=== PATIENT | female | born 1980 | race Caucasian/White ===

== ENCOUNTER 2016-08-06 18:03 | Emergency (ER) | payer MEDICAID ==
[2016-08-06 18:19] VITALS: BP 137/99
--- NOTE | 2016-08-06 18:26 | ER Document Report ---
ED Medical Screen (RME) - General Chief Complaint: Facial Swelling Stated Complaint: FACIAL SWELLING Mode of Arrival: Ambulatory Information source: Patient Notes: 36-year-old female presents to ED complaining of left lower facial/jaw swelling and pain. Denies fever, difficulty breathing or swallowing. I have greeted and performed a rapid initial assessment of this patient. A comprehensive ED assessment and evaluation of the patient, analysis of test results and completion of the medical decision making process will be conducted by additional ED providers. TRAVEL OUTSIDE OF THE [place] IN LAST 30 DAYS: No - Related Data Allergies/Adverse Reactions: doxycycline Allergy (Verified 08/06/16 18:22) naproxen [From Naprosyn] Allergy (Verified 08/06/16 18:22) ibuprofen Adverse Reaction (Verified 08/06/16 18:22) Past Medical History - Social History Frequency of alcohol use: None Drug Abuse: None Family history: Reviewed & Not Pertinent - Past Medical History Cardiac Medical History: Reports: Hx Hypertension Pulmonary Medical History: Reports: Hx Bronchitis, Hx Pneumonia Denies: Hx Tuberculosis Renal/ Medical History: Reports: Hx Kidney Stones. Denies: Hx Peritoneal Dialysis Musculoskeltal Medical History: Reports Hx Musculoskeletal Trauma - fr arm Psychiatric Medical History: Reports: Hx Anxiety Denies: Hx Depression Traumatic Medical History: Reports: Hx Fractures - right arm Past Surgical History: Reports: Hx Section - x3, Hx Cholecystectomy, Hx Hysterectomy, Hx Inguinal Hernia, Hx Oral Surgery - teeth taken out - Immunizations Immunizations up to date: Yes Hx Diphtheria, Pertussis, Tetanus Vaccination: Yes Physical Exam - Vital signs Vitals: Temp Pulse Resp BP Pulse Ox 98.2 F 104 H 16 137/99 H 98 08/06/16 18:17 08/06/16 18:17 08/06/16 18:17 08/06/16 18:17 08/06/16 18:17 - General General appearance: Appears well, Alert In distress: None - Respiratory Respiratory status: No respiratory distress Course - Vital Signs Vital signs: Temp Pulse Resp BP Pulse Ox 98.2 F 104 H 16 137/99 H 98 08/06/16 18:17 08/06/16 18:17 08/06/16 18:17 08/06/16 18:17 08/06/16 18:17
[2016-08-06] MEDS ORDERED: SULFAMETHOXAZOLE/TRIMETHOPRIM 800-160 MG TABLET PO ONE (20:22)
[2016-08-06] MEDS ORDERED: CEPHALEXIN 500 MG CAPSULE PO ONE (20:22)
[2016-08-06] MEDS ORDERED: HYDROCODONE/ACETAMINOPHEN 5-325 MG 6 TAB/DSPK PO PRN (20:22)
--- NOTE | 2016-08-06 20:27 | ER Document Report ---
ED Skin Rash/Insect Bite/Abscs - General Chief Complaint: Facial Swelling Stated Complaint: FACIAL SWELLING Time seen by provider: 20:23 Mode of Arrival: Ambulatory Notes: Patient is a 36-year-old female that comes emergency department for chief complaint of an area on her face to the left of her mouth that has become slightly swollen, tender and she came to be evaluated for this. She denies throat pain, she has dentures, she denies fever, she denies neck pain. She denies history of MRSA or abscesses. TRAVEL OUTSIDE OF THE [place] IN LAST 30 DAYS: No - Related Data Allergies/Adverse Reactions: doxycycline Allergy (Verified 08/06/16 18:22) naproxen [From Naprosyn] Allergy (Verified 08/06/16 18:22) ibuprofen Adverse Reaction (Verified 08/06/16 18:22) Past Medical History - General Information source: Patient - Social History Smoking Status: Current Every Day Smoker Frequency of alcohol use: None Drug Abuse: None Lives with: Family Family History: CAD, CVA, DM, Hyperlipidemia, Hypertension, Malignancy, Other - GB disease Patient has suicidal ideation: No Patient has homicidal ideation: No - Past Medical History Cardiac Medical History: Reports: Hx Hypertension Pulmonary Medical History: Reports: Hx Bronchitis, Hx Pneumonia Denies: Hx Tuberculosis Renal/ Medical History: Reports: Hx Kidney Stones. Denies: Hx Peritoneal Dialysis Musculoskeltal Medical History: Reports Hx Musculoskeletal Trauma - fr arm Psychiatric Medical History: Reports: Hx Anxiety Denies: Hx Depression Traumatic Medical History: Reports: Hx Fractures - right arm Past Surgical History: Reports: Hx Section - x3, Hx Cholecystectomy, Hx Hysterectomy, Hx Inguinal Hernia, Hx Oral Surgery - teeth taken out - Immunizations Immunizations up to date: Yes Hx Diphtheria, Pertussis, Tetanus Vaccination: Yes Review of Systems - Review of Systems Constitutional: No symptoms reported EENT: See HPI Cardiovascular: No symptoms reported Respiratory: No symptoms reported Gastrointestinal: No symptoms reported Genitourinary: No symptoms reported Female Genitourinary: No symptoms reported Musculoskeletal: No symptoms reported Skin: See HPI Hematologic/Lymphatic: No symptoms reported Neurological/Psychological: No symptoms reported Physical Exam - Vital signs Vitals: Temp Pulse Resp BP Pulse Ox 98.2 F 104 H 16 137/99 H 98 08/06/16 18:17 08/06/16 18:17 08/06/16 18:17 08/06/16 18:17 08/06/16 18:17 Interpretation: Normal - General General appearance: Appears well, Alert In distress: None - HEENT Head: Normocephalic, Atraumatic Eyes: Normal Conjunctiva: Normal Extraocular movements intact: Yes Eyelashes: Normal Pupils: PERRL Sinus: Normal Nasal: Normal Mouth/Lips: Normal Mucous membranes: Normal Pharynx: Normal Neck: Normal - Respiratory Respiratory status: No respiratory distress Chest status: Nontender Breath sounds: Normal. No: Decreased air movement, Nonproductive cough, Wheezing - Cardiovascular Rhythm: Regular - No tachycardia on my exam. No: Tachycardia Heart sounds: Normal auscultation, S1 appreciated, S2 appreciated Murmur: No - Abdominal Inspection: Normal Distension: No distension Bowel sounds: Normal Tenderness: Nontender. No: Tender, Guarding - Back Back: Normal, Nontender. 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 Sensory: Normal - Psychological Associated symptoms: Normal affect, Normal mood - Skin Skin Temperature: Warm Skin Moisture: Dry Skin Color: Normal Skin irregularity: other - small area of skin firmness underneath the superficial skin over the left lower face (adjacent to the lips) with mild tenderness to the area, no significant erythema, no noted induration or fluctuance Course - Re-evaluation Re-evalutation: There is a small area of skin firmness underneath the superficial skin over the face with mild tenderness to the area, no significant erythema, no noted induration or fluctuance, no drainable abscess. Appears to be an early skin infection. Dental examination is unremarkable with dentures. No lymphadenopathy. Patient is not tachycardic on my evaluation. - Vital Signs Vital signs: Temp Pulse Resp BP Pulse Ox 98.2 F 104 H 16 137/99 H 98 08/06/16 18:17 08/06/16 18:17 08/06/16 18:17 08/06/16 18:17 08/06/16 18:17 Discharge - Discharge Clinical Impression: Skin infection Condition: Stable Disposition: HOME, SELF-CARE Additional Instructions: There is a small area of localized skin infection on your face. Apply warm compress to the area, take the antibiotics. This may resolve, this also may increase swelling into a head (abscess) that will need to be drained. Please return for any formation of an abscess, spreading redness around the area , fever, or any other concerning symptoms. Prescriptions: Cephalexin Monohydrate [Keflex 500 mg Capsule] 500 mg PO QID #28 capsule Sulfamethoxazole/Trimethoprim [Bactrim Ds Tablet] 1 each PO BID #14 tablet Forms: Return to Work Referrals: MIRTHA ARTEAGA MD, [Primary Care Provider] - Follow up as needed
== END 2016-08-06 20:34 | disposition home or self-care (01) ==
LOC: EEVIPCON 18:03 → ER 18:03
DX: L08.9 Local infection of the skin and subcutaneous tissue, unspecified (principal); I10 Essential (primary) hypertension; F17.200 Nicotine dependence, unspecified, uncomplicated; Z88.1 Allergy status to other antibiotic agents; Z88.8 Allergy status to other drugs, medicaments and biological substances
CPT/HCPCS: 99283; J3490

== ENCOUNTER 2016-11-16 16:21 | Emergency (ER) | payer MEDICAID ==
[2016-11-16 16:29] VITALS: BP 126/80
--- NOTE | 2016-11-16 16:39 | ER Document Report ---
HPI - HPI Patient complains to provider of: itchy rash Onset: Other - 2 months Onset/Duration: Persistent Pain Level: 2 Context: 36-year-old female complaining of isolated pruritic lesions/rash on her arms waist. 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 No history scabies. Associated Symptoms: None Exacerbated by: Denies Relieved by: Denies Similar symptoms previously: No Recently seen / treated by doctor: No - ROS ROS below otherwise negative: Yes Systems Reviewed and Negative: Yes All other systems reviewed and negative - REPRODUCTIVE Reproductive: DENIES: : - DERM Skin Color: Normal Past Medical History - General Information source: Patient - Social History Smoking Status: Unknown if Ever Smoked Frequency of alcohol use: None Drug Abuse: None Lives with: Family Family History: CAD, CVA, DM, Hyperlipidemia, Hypertension, Malignancy, Other - GB disease Patient has suicidal ideation: No Patient has homicidal ideation: No - Past Medical History Cardiac Medical History: Reports: Hx Hypertension Pulmonary Medical History: Reports: Hx Bronchitis, Hx Pneumonia Denies: Hx Tuberculosis Renal/ Medical History: Reports: Hx Kidney Stones. Denies: Hx Peritoneal Dialysis Musculoskeltal Medical History: Reports Hx Musculoskeletal Trauma - fr arm Psychiatric Medical History: Reports: Hx Anxiety Denies: Hx Depression Traumatic Medical History: Reports: Hx Fractures - right arm Past Surgical History: Reports: Hx Section - x3, Hx Cholecystectomy, Hx Hysterectomy, Hx Inguinal Hernia, Hx Oral Surgery - teeth taken out - Immunizations Immunizations up to date: Yes Hx Diphtheria, Pertussis, Tetanus Vaccination: Yes Vertical Provider Document - CONSTITUTIONAL Agree With Documented VS: Yes - INFECTION CONTROL TRAVEL OUTSIDE OF THE [place] IN LAST 30 DAYS: No - HEENT HEENT: Normocephalic - NECK Neck: Supple - RESPIRATORY Respiratory: Breath Sounds Normal, No Respiratory Distress O2 Sat by Pulse Oximetry: 98 - CARDIOVASCULAR Cardiovascular: Regular Rate, Regular Rhythm - GI/ABDOMEN Gastrointestinal: Abdomen Soft, Abdomen Non-Tender, No Organomegaly - BACK Back: Normal Inspection - MUSCULOSKELETAL/EXTREMETIES Musculoskeletal/Extremeties: TRELL GOYAL - NEURO Level of Consciousness: Awake, Alert, Appropriate - DERM Integumentary: Rash - inflamed isolated crusted lesions scattered on both arms, anterior trunk Course - Re-evaluation Re-evalutation: 11/16/16 16:53 Patient started Levaquin yesterday for a upper respiratory infection by her primary care doctor prescription - Vital Signs Vital signs: Temp Pulse Resp BP Pulse Ox 98.2 F 98 16 126/80 H 98 11/16/16 16:27 11/16/16 16:27 11/16/16 16:27 11/16/16 16:27 11/16/16 16:27 Discharge - Discharge Clinical Impression: Impetigo, Scabies Condition: Good Disposition: HOME, SELF-CARE Instructions: Impetigo ([facility]), Bactroban Ointment ([facility]), Anti-Mite Skin Creams Additional Instructions: see instrumental teacher if persists to er if worse Please complete the patient satisfaction survey if you get one, and return it.. If you do not receive a survey, then you can go to the [facility] website, [email or web address] and place your comments about your very good care. Thank you very much. It was a pleasure being your medical provider today. Prescriptions: Mupirocin [Bactroban 2% Ointment 22 gm] 1 applic TP TID #1 tube Permethrin [Elimite] 60 gm TP ONCE PRN #60 cream..g. PRN Reason: Forms: Return to Work Referrals: RAMIRO SHANKAR, [ACTIVE STAFF] - Follow up as needed
== END 2016-11-16 17:06 | disposition home or self-care (01) ==
LOC: ER 16:21
DX: L01.00 Impetigo, unspecified (principal); B86 Scabies; R21 Rash and other nonspecific skin eruption
CPT/HCPCS: 99283

== ENCOUNTER 2016-12-09 19:30 | Emergency (ER) | payer MEDICAID ==
[2016-12-09] MEDS ORDERED: LIDOCAINE 1% INJ-PF (10 MG/ML) 30 ML SDV INJ ONE (19:56)
[2016-12-09] MEDS ORDERED: DEXAMETHASONE SOD PHOS INJ 10 MG/1 ML VIAL IM ONE (19:56)
[2016-12-09] MEDS ORDERED: CEFTRIAXONE INJ 1000 MG VIAL IM ONE (19:56)
--- NOTE | 2016-12-09 20:01 | ER Document Report ---
ED Respiratory Problem - General Chief Complaint: Cold Symptoms Stated Complaint: COUGH,FEVER Time Seen by Provider: 12/09/16 19:56 Mode of Arrival: Ambulatory Information source: Patient TRAVEL OUTSIDE OF THE [place] IN LAST 30 DAYS: No - HPI Patient complains to provider of: Cough Onset: Other - This 36-year-old female presented to the emergency room today stating she has had a cough with productive sputum yellow-green in nature for 3 days. - Related Data Allergies/Adverse Reactions: doxycycline Allergy (Verified 11/16/16 16:27) naproxen [From Naprosyn] Allergy (Verified 11/16/16 16:27) ibuprofen Adverse Reaction (Verified 11/16/16 16:27) Past Medical History - General Information source: Patient - Social History Smoking Status: Current Every Day Smoker Cigarette use (# per day): Yes Chew tobacco use (# tins/day): No Smoking Education Provided: No Family History: CAD, CVA, DM, Hyperlipidemia, Hypertension, Malignancy, Other - GB disease - Past Medical History Cardiac Medical History: Reports: Hx Hypertension Pulmonary Medical History: Reports: Hx Bronchitis, Hx Pneumonia Denies: Hx Tuberculosis Renal/ Medical History: Reports: Hx Kidney Stones. Denies: Hx Peritoneal Dialysis GI Medical History: Reports: Hx Gastroesophageal Reflux Disease Musculoskeltal Medical History: Reports Hx Musculoskeletal Trauma - fr arm Psychiatric Medical History: Reports: Hx Anxiety Denies: Hx Depression Traumatic Medical History: Reports: Hx Fractures - right arm Past Surgical History: Reports: Hx Section - x3, Hx Cholecystectomy, Hx Hysterectomy, Hx Inguinal Hernia, Hx Oral Surgery - teeth taken out - Immunizations Immunizations up to date: Yes Hx Diphtheria, Pertussis, Tetanus Vaccination: Yes Review of Systems - Review of Systems Constitutional: No symptoms reported EENT: No symptoms reported Cardiovascular: No symptoms reported Respiratory: No symptoms reported Gastrointestinal: No symptoms reported Genitourinary: No symptoms reported Female Genitourinary: No symptoms reported Musculoskeletal: No symptoms reported Skin: No symptoms reported Hematologic/Lymphatic: No symptoms reported Neurological/Psychological: No symptoms reported Physical Exam - Vital signs Vitals: Temp Pulse Resp BP Pulse Ox 99.7 F 115 H 18 141/91 H 94 12/09/16 19:37 12/09/16 19:37 12/09/16 19:37 12/09/16 19:37 12/09/16 19:37 Interpretation: Normal - General General appearance: Appears well, Alert - HEENT Head: Normocephalic, Atraumatic Eyes: Normal Pupils: PERRL - Respiratory Respiratory status: No respiratory distress Chest status: Nontender Breath sounds: Productive cough - Green discharge. Chest palpation: Normal - Cardiovascular Rhythm: Regular Heart sounds: Normal auscultation Murmur: No - Abdominal Inspection: Normal Distension: No distension Bowel sounds: Normal Tenderness: Nontender Organomegaly: No organomegaly - Back Back: Normal, Nontender - Extremities General upper extremity: Normal inspection, Nontender, Normal color, Normal ROM , Normal temperature General lower extremity: Normal inspection, Nontender, Normal color, Normal ROM , Normal temperature, Normal weight bearing. No: Adair's sign - Neurological Neuro grossly intact: Yes Cognition: Normal Orientation: AAOx4 [place] Coma Scale Eye Opening: Spontaneous [place] Coma Scale Verbal: Oriented [place] Coma Scale Motor: Obeys Commands [place] Coma Scale Total: 15 Speech: Normal Motor strength normal: LUE, RUE, LLE, RLE Sensory: Normal - Psychological Associated symptoms: Normal affect, Normal mood - Skin Skin Temperature: Warm Skin Moisture: Dry Skin Color: Normal Course - Vital Signs Vital signs: Temp Pulse Resp BP Pulse Ox 99.7 F 115 H 18 141/91 H 94 12/09/16 19:37 12/09/16 19:37 12/09/16 19:37 12/09/16 19:37 12/09/16 19:37 Discharge - Discharge Clinical Impression: Bronchitis Condition: Good Disposition: HOME, SELF-CARE Additional Instructions: Bronchitis You have acute bronchitis. This disease is an infection or inflammation of the air passageways in your lungs. Symptoms usually include cough, low grade fever, shortness of breath, and wheezing. The cough usually persists for a couple of weeks. Most cases of bronchitis get better without antibiotics. We prescribe antibiotics when we believe bacteria are damaging your airways, or if there's high risk the bronchitis will worsen into pneumonia. Increase your fluid intake. A cool mist humidifier may make your lungs more comfortable. An expectorant (cough medicine that loosens phlegm) can help. If you smoke, STOP!!! Recovery from bronchitis can be somewhat slow, but you should see improvement within a day or two. Repeated episodes of bronchitis may result in lung damage -- for example, chronic bronchitis, recurrent pneumonias, or emphysema. Call the doctor if you develop increasing fever, shortness of breath, chest pain, bloody sputum, or otherwise worsen. If you have not improved at all after several days, contact the physician. Follow-up with private doctor in 1 to 2 days for final radiology readings please return to the emergency room for any change worsening condition. Follow up with private M.D. for all other routine health care needs. Prescriptions: Albuterol Sulfate [Proair HFA Inhalation Aerosol 8.5 gm MDI] 2 puff IH Q4H PRN # 1 mdi PRN Reason: Amox Tr/Potassium Clavulanate [Augmentin 875-125 Tablet] 1 tab PO BID 10 Days
[2016-12-09 20:44] VITALS: BP 136/86
== END 2016-12-09 20:42 | disposition home or self-care (01) ==
LOC: ER 19:30
DX: J40 Bronchitis, not specified as acute or chronic (principal); R50.9 Fever, unspecified; F17.210 Nicotine dependence, cigarettes, uncomplicated; I10 Essential (primary) hypertension; K21.9 Gastro-esophageal reflux disease without esophagitis; Z87.442 Personal history of urinary calculi; Z88.6 Allergy status to analgesic agent; Z90.49 Acquired absence of other specified parts of digestive tract; Z90.710 Acquired absence of both cervix and uterus
CPT/HCPCS: 99283; 96372; J3490; J0696; J1100

== ENCOUNTER 2016-12-12 13:53 | Inpatient (IN) | payer MEDICAID ==
[2016-12-12] MEDS ORDERED: LEVOFLOXACIN 750 MG/D5W RTU 150 ML IV ONE (14:30)
[2016-12-12 14:33] LABS: HEMATOCRIT 39.2 % (36.0-47.0); HEMOGLOBIN 12.8 g/dL (12.0-15.5); HGB HCT DIFFERENCE -0.8; MEAN CORPUSCULAR HEMOGLOBIN 27.8 pg (27.0-33.4); MEAN CORPUSCULAR HGB CONC 32.6 g/dL (32.0-36.0); MEAN CORPUSCULAR VOLUME 85 fl (80-97); RED CELL DISTRIBUTION WIDTH 14.4 % (11.5-14.0); WHITE BLOOD COUNT 21.3 10^3/uL (4.0-10.5)
[2016-12-12 14:46] LABS: ALANINE AMINOTRANSFERASE 29 U/L (9-52); ALBUMIN 4.1 g/dL (3.5-5.0); ALKALINE PHOSPHATASE 97 U/L (38-126); ANION GAP 13 (5-19); ASPARTATE AMINO TRANSFERASE 30 U/L (14-36); BILIRUBIN,DIRECT 0.4 mg/dL (0.0-0.4); BILIRUBIN,TOTAL 0.6 mg/dL (0.2-1.3); BLOOD UREA NITROGEN 11 mg/dL (7-20); CALCIUM 9.3 mg/dL (8.4-10.2); CARBON DIOXIDE 24 mmol/L (22-30); CHLORIDE 103 mmol/L (98-107); CREATININE RESULT 0.77 mg/dL (0.52-1.25); GLUCOSE 143 mg/dL (75-110); POTASSIUM 4.3 mmol/L (3.6-5.0); SODIUM 140.1 mmol/L (137-145); TOTAL PROTEIN 7.4 g/dL (6.3-8.2)
--- NOTE | 2016-12-12 15:14 | ER Document Report ---
ED General - General Chief Complaint: Respiratory Distress Stated Complaint: RESPIRATORY DISTRESS Time Seen by Provider: 12/12/16 14:16 Mode of Arrival: Medic Information source: Patient Notes: 36-year-old female presents with complaints of respiratory distress.Pt noted to by satting 85% on Ra, states she has had complaints since for 4 days now, is a smoker, was diagnosed with bronchitis has taken 7 breathing treatments since this morning TRAVEL OUTSIDE OF THE [place] IN LAST 30 DAYS: No - HPI Onset: Other Onset/Duration: Persistent Quality of pain: No pain Severity: Moderate Pain Level: Denies Associated symptoms: Shortness of breath Exacerbated by: Walking, Coughing Relieved by: Denies Similar symptoms previously: Yes Recently seen / treated by doctor: Yes - Related Data Allergies/Adverse Reactions: doxycycline Allergy (Verified 12/09/16 20:41) naproxen [From Naprosyn] Allergy (Verified 12/09/16 20:41) ibuprofen Adverse Reaction (Verified 12/09/16 20:41) Past Medical History - Social History Smoking Status: Current Every Day Smoker Cigarette use (# per day): Yes Chew tobacco use (# tins/day): No Smoking Education Provided: Yes - Patient counselled regarding cessation for 4 minutes Frequency of alcohol use: None Drug Abuse: None Family History: CAD, CVA, DM, Hyperlipidemia, Hypertension, Malignancy, Other - GB disease - Past Medical History Cardiac Medical History: Reports: Hx Hypertension Pulmonary Medical History: Reports: Hx Bronchitis, Hx Pneumonia Denies: Hx Tuberculosis Renal/ Medical History: Reports: Hx Kidney Stones. Denies: Hx Peritoneal Dialysis GI Medical History: Reports: Hx Gastroesophageal Reflux Disease Musculoskeltal Medical History: Reports Hx Musculoskeletal Trauma - fr arm Psychiatric Medical History: Reports: Hx Anxiety Denies: Hx Depression Traumatic Medical History: Reports: Hx Fractures - right arm Past Surgical History: Reports: Hx Section - x3, Hx Cholecystectomy, Hx Hysterectomy, Hx Inguinal Hernia, Hx Oral Surgery - teeth taken out - Immunizations Immunizations up to date: Yes Hx Diphtheria, Pertussis, Tetanus Vaccination: Yes Review of Systems - Review of Systems Notes: REVIEW OF SYSTEMS: CONSTITUTIONAL : Denies fever, chills, or sweats. Denies recent illness. EENT: Denies eye, ear, throat, or mouth pain or symptoms. Denies nasal or sinus congestion or discharge. Denies throat, tongue, or mouth swelling or difficulty swallowing. CARDIOVASCULAR: Denies chest pain. Denies palpitations or racing or irregular heart beat. Denies ankle edema. RESPIRATORY: Shortness breath difficulty breathing GASTROINTESTINAL: Denies abdominal pain or distention. Denies nausea, vomiting , or diarrhea. Denies blood in vomitus, stools, or per rectum. Denies black, tarry stools. Denies constipation. GENITOURINARY: Denies difficulty urinating, painful urination, burning, frequency, blood in urine, or discharge. FEMALE GENITOURINARY: Denies vaginal bleeding, heavy or abnormal periods, irregular periods. Denies vaginal discharge or odor. MUSCULOSKELETAL: Denies back or neck pain or stiffness. Denies joint pain or swelling. SKIN: Denies rash, lesions or sores. HEMATOLOGIC : Denies easy bruising or bleeding. LYMPHATIC: Denies swollen, enlarged glands. NEUROLOGICAL: Denies confusion or altered mental status. Denies passing out or loss of consciousness. Denies dizziness or lightheadedness. Denies headache. Denies weakness or paralysis or loss of use of either side. Denies problems with gait or speech. Denies sensory loss, numbness, or tingling. Denies seizures. PSYCHIATRIC: Denies anxiety or stress. Denies depression, suicidal ideation, or homicidal ideation. ALL OTHER SYSTEMS REVIEWED AND NEGATIVE. Dictation was performed using [employer] voice recognition software PHYSICAL EXAMINATION: GENERAL: Well-appearing, well-nourished and in moderate respiratory distress HEAD: Atraumatic, normocephalic. EYES: Pupils equal round and reactive to light, extraocular movements intact, conjunctiva are normal. ENT: Nares patent, oropharynx clear without exudates. Moist mucous membranes. NECK: Normal range of motion, supple without lymphadenopathy LUNGS: Coarse breath sounds right middle upper lobe, intercostal supraclavicular retractions HEART: Regular rate and rhythm without murmurs ABDOMEN: Soft, nontender, nondistended abdomen. No guarding, no rebound. No masses appreciated. Female : deferred Musculoskeletal: Normal range of motion, no pitting or edema. No cyanosis. NEUROLOGICAL: Cranial nerves grossly intact. Normal speech, normal gait. Normal sensory, motor exams PSYCH: Normal mood, normal affect. SKIN: Warm, Dry, normal turgor, no rashes or lesions noted. Physical Exam - Vital signs Vitals: Resp Pulse Ox 40 H 88 L 05/30/17 14:17 12/12/16 14:17 Course - Re-evaluation Re-evalutation: 12/12/16 15:14 Patient noted to have a white count 21,000, she is hypoxic respiratory distress. Multiple breathing treatments have been given. Patient placed on nonrebreather's O2 sats are not improving. Lactic venous blood gas are pending and will require admission for significant respiratory distress - Vital Signs Vital signs: Temp Pulse Resp BP Pulse Ox 21 H 120/79 95 12/12/16 15:00 12/12/16 14:48 12/12/16 15:00 - Laboratory Result Diagrams: 12/12/16 14:15 12/12/16 14:15 Laboratory results interpreted by me: 12/12/16 12/12/16 14:15 14:15 WBC 21.3 H RDW 14.4 H Seg Neuts % (Manual) 88 H Lymphocytes % (Manual) 9 L Monocytes % (Manual) 2 L Abs Neuts (Manual) 18.7 H Glucose 143 H Critical Care Note - Critical Care Note Total time excluding time spent on procedures (mins): 34 Comments: 34 critical care Discharge - Discharge Clinical Impression: Hypoxemia, Respiratory distress Sepsis Qualifiers: Sepsis type: sepsis due to unspecified organism Qualified Code(s): A41.9 - Sepsis, unspecified organism Pneumonia Qualifiers: Pneumonia type: due to unspecified organism Laterality: right Lung location: middle lobe of lung Qualified Code(s): J18.1 - Lobar pneumonia, unspecified organism Sepsis Qualifiers: Sepsis type: sepsis due to unspecified organism Qualified Code(s): A41.9 - Sepsis, unspecified organism Sepsis Qualifiers: Sepsis type: sepsis due to unspecified organism Qualified Code(s): A41.9 - Sepsis, unspecified organism Condition: Fair Disposition: ADMITTED INPATIENT Admitting Provider: Hospitalist Unit Admitted: IMCU Referrals: MIRTHA ARTEAGA MD [Primary Care Provider] - Follow up as needed
--- NOTE | 2016-12-12 15:23 | RADIOLOGY REPORT (SQ) ---
EXAM DESCRIPTION: CHEST SINGLE VIEW COMPLETED DATE/TIME: 12/12/2016 2:39 pm REASON FOR STUDY: sob COMPARISON: 05/26/2016 EXAM PARAMETERS: NUMBER OF VIEWS: One view. TECHNIQUE: Single frontal radiographic view of the chest acquired. RADIATION DOSE: NA LIMITATIONS: None. FINDINGS: LUNGS AND PLEURA: The perihilar markings are prominent. MEDIASTINUM AND HILAR STRUCTURES: No masses. Contour normal. HEART AND VASCULAR STRUCTURES: The heart size is normal. However, pulmonary vascular markings are pr ominent. BONES: No acute findings. HARDWARE: None in the chest. OTHER: No other significant finding. IMPRESSION: Pulmonary vascular congestion with no localized pulmonary infiltrates. TECHNICAL DOCUMENTATION: JOB ID: [id number]
[2016-12-12 15:24] LABS: VENOUS BLOOD BASE EXCESS -0.3 mmol/L; VENOUS BLOOD HCO3 24.9 mmol/L (20-32); VENOUS BLOOD PCO2 42.7 mmHg (35-63); VENOUS BLOOD PH 7.38 (7.30-7.42)
[2016-12-12 15:31] LABS: ANISOCYTOSIS SLIGHT; BASOPHILS % (MANUAL) 0 % (0-2); EOSINOPHILS % (MANUAL) 1 % (0-6); LYMPHOCYTES % (MANUAL) 9 % (13-45); TOTAL CELLS COUNTED 100; TOXIC GRANULATION SLIGHT
[2016-12-12] MEDS ORDERED: NORMAL SALINE 1000 ML 1,000 ML IV ONE (15:39)
[2016-12-12 15:57] LABS: CREATINE KINASE MB 0.82 ng/mL (<4.55)
[2016-12-12 15:58] LABS: TROPONIN I < 0.012 ng/mL
[2016-12-12] MEDS ORDERED: ACETAMINOPHEN 325 MG TABLET PO PRN (16:28)
[2016-12-12] MEDS ORDERED: HYDRALAZINE HCL INJ/PF 20 MG/1 ML SDV IV PRN (16:36)
[2016-12-12 16:37] LABS: APPEARANCE,URINE CLEAR; BILIRUBIN,URINE NEGATIVE (NEGATIVE); GLUCOSE, URINE NEGATIVE (NEGATIVE); KETONES,URINE NEGATIVE (NEGATIVE); LEUKOCYTE ESTERASE,URINE NEGATIVE (NEGATIVE); NITRITE,URINE NEGATIVE (NEGATIVE); PROTEIN,URINE NEGATIVE (NEGATIVE); URINE SPECIFIC GRAVITY 1.009; UROBILINOGEN,URINE NEGATIVE mg/dL (<2.0)
--- NOTE | 2016-12-12 16:41 | PDOC H&P ---
History of Present Illness Admission Date/PCP: 12/12/16 16:19 MIRTHA ARTEAGA MD Patient complains of: Cough History of Present Illness: SARA GRAF is a 36 year old female with several day history of cough and fevers. Patient was treated 2 days ago for acute bronchitis with oral Augmentin. She presents to the emergency department today with worsening symptoms and is found to be hypoxic with O2 sat of 82% on room air. She feels generally ill. She has had poor appetite. She has had fevers and chills. She is a smoker. Medications have not been verified. Past Medical History Cardiac Medical History: Reports: Hypertension Pulmonary Medical History: Reports: Bronchitis, Pneumonia Denies: Tuberculosis GI Medical History: Reports: Gastroesophageal Reflux Disease Psychiatric Medical History: Denies: Depression Past Surgical History Past Surgical History: Reports: Section - x3, Cholecystectomy, Herniorrhaphy, Hysterectomy Social History Information Source: Patient Lives with: Family Smoking Status: Current Every Day Smoker Frequency of Alcohol Use: Occasional Hx Recreational Drug Use: No Hx Prescription Drug Abuse: No - Advance Directive Resuscitation Status: Full Code Family History Family History: CAD, CVA, DM, Hyperlipidemia, Hypertension, Malignancy, Other - GB disease Parental Family History Reviewed: Yes Children Family History Reviewed: Yes Sibling(s) Family History Reviewed.: Yes Medication/Allergy Allergies/Adverse Reactions: doxycycline Allergy (Verified 12/09/16 20:41) naproxen [From Naprosyn] Allergy (Verified 12/09/16 20:41) ibuprofen Adverse Reaction (Verified 12/09/16 20:41) Review of Systems Constitutional: PRESENT: chills, fatigue. ABSENT: fever(s), headache(s), weight gain, weight loss Eyes: ABSENT: visual disturbances Ears: ABSENT: hearing changes Cardiovascular: ABSENT: chest pain, dyspnea on exertion, edema, orthropnea, palpitations Respiratory: PRESENT: cough, dyspnea, sputum. ABSENT: hemoptysis Gastrointestinal: ABSENT: abdominal pain, constipation, diarrhea, hematemesis, hematochezia, nausea, vomiting Genitourinary: ABSENT: dysuria, hematuria Musculoskeletal: ABSENT: joint swelling Integumentary: ABSENT: rash, wounds Neurological: ABSENT: abnormal gait, abnormal speech, confusion, dizziness, focal weakness, syncope Psychiatric: ABSENT: anxiety, depression, homidical ideation, suicidal ideation Endocrine: ABSENT: cold intolerance, heat intolerance, polydipsia, polyuria Hematologic/Lymphatic: ABSENT: easy bleeding, easy bruising Physical Exam Vital Signs: Temp Pulse Resp BP Pulse Ox 26 H 120/79 96 12/12/16 16:22 12/12/16 14:48 12/12/16 16:00 PHYSICAL EXAM: GENERAL: Slightly ill-appearing, alert HEENT: Normocephalic, no scleral icterus, conjunctiva clear, EOEM intact, PERRLA , moist mucous membranes NECK: trachea midline, no thyromegally RESPIRATORY: Bilateral wheezes and rhonchi CARDIAC: Regular rate and rhythm, no murmur/osmani/rub ABDOMEN: Soft, no distension, no tenderness, no guarding, normal bowel sounds, negative Barber sign RECTAL: deferred : deferred EXTREMITIES: No edema, cyanosis, clubbing MUSCULOSKELETAL: No joint swelling or deformity VASCULAR: normal peripheral pulses NEUROLOGIC: Alert, oriented to person/place/time, normal speech, cranial nerves grossly intact, 5/5 strength in all extremities, tactile sensation intact in all extremities SKIN: No rash, no wounds, no worrisome skin lesions PSYCHIATRIC: Normal mood, normal affect Results Laboratory Results: Labs- All tests 24 hr 12/12/16 12/12/16 12/12/16 14:15 14:15 14:15 WBC 21.3 H RBC 4.60 Hgb 12.8 Hct 39.2 MCV 85 MCH 27.8 MCHC 32.6 RDW 14.4 H Plt Count 241 Total Counted 100 Seg Neutrophils % Not Reportable Seg Neuts % (Manual) 88 H Lymphocytes % Not Reportable Lymphocytes % (Manual) 9 L Monocytes % Not Reportable Monocytes % (Manual) 2 L Eosinophils % Not Reportable Eosinophils % (Manual) 1 Basophils % Not Reportable Basophils % (Manual) 0 Absolute Neutrophils Not Reportable Abs Neuts (Manual) 18.7 H Absolute Lymphocytes Not Reportable Abs Lymphs (Manual) 1.9 Absolute Monocytes Not Reportable Abs Monocytes (Manual) 0.4 Absolute Eosinophils Not Reportable Absolute Eos (Manual) 0.2 Absolute Basophils Not Reportable Abs Basophils (Manual) 0.0 Toxic Granulation SLIGHT Platelet Comment ADEQUATE Anisocytosis SLIGHT VBG pH VBG pCO2 VBG HCO3 VBG Base Excess Sodium 140.1 Potassium 4.3 Chloride 103 Carbon Dioxide 24 Anion Gap 13 BUN 11 Creatinine 0.77 Est GFR ( Amer) > 60 Est GFR (Non-Af Amer) > 60 Glucose 143 H Lactic Acid Calcium 9.3 Total Bilirubin 0.6 Direct Bilirubin 0.4 Indirect Bilirubin Not Reportable Neonat Total Bilirubin Not Reportable AST 30 ALT 29 Alkaline Phosphatase 97 Creatine Kinase 84 CK-MB (CK-2) Troponin I NT-Pro-B Natriuret Pep Total Protein 7.4 Albumin 4.1 12/12/16 12/12/16 12/12/16 14:15 15:06 15:06 WBC RBC Hgb Hct MCV MCH MCHC RDW Plt Count Total Counted Seg Neutrophils % Seg Neuts % (Manual) Lymphocytes % Lymphocytes % (Manual) Monocytes % Monocytes % (Manual) Eosinophils % Eosinophils % (Manual) Basophils % Basophils % (Manual) Absolute Neutrophils Abs Neuts (Manual) Absolute Lymphocytes Abs Lymphs (Manual) Absolute Monocytes Abs Monocytes (Manual) Absolute Eosinophils Absolute Eos (Manual) Absolute Basophils Abs Basophils (Manual) Toxic Granulation Platelet Comment Anisocytosis VBG pH 7.38 VBG pCO2 42.7 VBG HCO3 24.9 VBG Base Excess -0.3 Sodium Potassium Chloride Carbon Dioxide Anion Gap BUN Creatinine Est GFR ( Amer) Est GFR (Non-Af Amer) Glucose Lactic Acid 1.5 Calcium Total Bilirubin Direct Bilirubin Indirect Bilirubin Neonat Total Bilirubin AST ALT Alkaline Phosphatase Creatine Kinase CK-MB (CK-2) 0.82 Troponin I < 0.012 NT-Pro-B Natriuret Pep 56 Total Protein Albumin Impressions: Chest X-Ray 12/12/16 14:17 Radiologist IMPRESSION: Pulmonary vascular congestion with no localized airspace disease (per my interpretation patient has left lower lung field pneumonia) Assessment & Plan - Diagnosis (1) Acute hypoxemic respiratory failure Is this a current diagnosis for this admission?: YesPlan: Continue oxygen supplementation. (2) Sepsis Qualifiers: Sepsis type: sepsis due to unspecified organism Qualified Code(s): A41.9 - Sepsis, unspecified organism Is this a current diagnosis for this admission?: YesPlan: Secondary to pneumonia. (3) Pneumonia Qualifiers: Pneumonia type: due to unspecified organism Laterality: right Lung location: middle lobe of lung Qualified Code(s): J18.1 - Lobar pneumonia, unspecified organism Is this a current diagnosis for this admission?: YesPlan: Likely bacterial. Failed outpatient Augmentin. Continue IV Levaquin initiated in the emergency department. Check blood cultures and sputum culture. (4) Hypertension Is this a current diagnosis for this admission?: YesPlan: Verify home medications and resume. As needed IV hydralazine. (5) Tobacco abuse Is this a current diagnosis for this admission?: Yes - Time Time Spent: Greater than 70 Minutes Anticipated discharge: Home Within: within 72 hours
[2016-12-12] MEDS: DEXTROSE 5%-1/2 NORMAL SALINE 1,000 ML IV PRN (19:01)
[2016-12-12] MEDS: GUAIFENESIN 600 MG TABLET.SA PO SCH (21:46)
[2016-12-12] MEDS: OXYCODONE HCL IR 5 MG TABLET PO PRN (21:46)
[2016-12-12] MEDS: ALBUTEROL SULFATE 0.083% NEB 2.5 MG/3 ML AMPUL NEB PRN (22:02)
--- NOTE | 2016-12-13 00:19 | EKG REPORT ---
SEVERITY:- ABNORMAL ECG - SINUS RHYTHM PROBABLE LEFT VENTRICULAR HYPERTROPHY : Confirmed by: Maira Zarate 13-Dec-2016 00:18:45
--- NOTE | 2016-12-13 00:20 | EKG REPORT ---
SEVERITY:- DEFECTIVE ECG - RIGHT AND LEFT ARM LEADS REVERSED, PLEASE REPEAT ECG : Confirmed by: Maira Zarate 13-Dec-2016 00:20:30
[2016-12-13] MEDS: ALBUTEROL SULFATE 0.083% NEB 2.5 MG/3 ML AMPUL NEB PRN ×3 (03:46→18:07)
[2016-12-13 04:54] LABS: HEMATOCRIT 36.7 % (36.0-47.0); HEMOGLOBIN 12.1 g/dL (12.0-15.5); HGB HCT DIFFERENCE -0.4; MEAN CORPUSCULAR VOLUME 85 fl (80-97); RED BLOOD COUNT 4.32 10^6/uL (3.72-5.28); RED CELL DISTRIBUTION WIDTH 14.5 % (11.5-14.0)
[2016-12-13 05:07] LABS: ANION GAP 11 (5-19); BLOOD UREA NITROGEN 10 mg/dL (7-20); CALCIUM 8.9 mg/dL (8.4-10.2); CARBON DIOXIDE 25 mmol/L (22-30); CHLORIDE 106 mmol/L (98-107); CREATININE RESULT 0.66 mg/dL (0.52-1.25); GLUCOSE 163 mg/dL (75-110); POTASSIUM 4.1 mmol/L (3.6-5.0); SODIUM 142.4 mmol/L (137-145)
[2016-12-13] MEDS: NICOTINE 7 MG/24 HR PATCH.TD24 TD PRN (05:17)
[2016-12-13] MEDS: DEXTROSE 5%-1/2 NORMAL SALINE 1,000 ML IV PRN ×2 (05:19→22:00)
[2016-12-13 05:37] LABS: BASOPHILS % (MANUAL) 0 % (0-2); EOSINOPHILS % (MANUAL) 0 % (0-6); LYMPHOCYTES % (MANUAL) 6 % (13-45); TOTAL CELLS COUNTED 100
[2016-12-13 05:38] LABS: ANISOCYTOSIS SLIGHT; TOXIC GRANULATION SLIGHT; TOXIC VACUOLATION PRESENT
[2016-12-13] MEDS: ENOXAPARIN SODIUM INJ 40 MG/0.4 ML DISP.SYRIN SUBCUT SCH (07:45)
[2016-12-13] MEDS ORDERED: VANCOMYCIN HCL 0 MG in DEXTROSE 5%-WATER 250 ML IV NR (08:30)
[2016-12-13] MEDS: LEVOFLOXACIN 750 MG/D5W RTU 150 ML IV SCH (09:02)
[2016-12-13] MEDS: GUAIFENESIN 600 MG TABLET.SA PO SCH ×2 (09:03→21:52)
[2016-12-13] MEDS: OXYCODONE HCL IR 5 MG TABLET PO PRN ×2 (09:04→21:52)
[2016-12-13] MEDS ORDERED: LEVOFLOXACIN 750 MG/D5W RTU 150 ML IV SCH (10:00)
[2016-12-13] MEDS: CEFEPIME 1 GM/D5W RTU 50 ML IV SCH ×2 (10:43→22:00)
[2016-12-13] MEDS: VANCOMYCIN HCL 1,000 MG in DEXTROSE 5%-WATER 250 ML IV SCH ×2 (10:58→18:04)
--- NOTE | 2016-12-13 13:38 | PDOC PROGRESS REPORT ---
Subjective Progress Note for:: 12/13/16 Subjective:: Patient states she feels possibly worse than yesterday with regard to fatigue and shortness of breath. She still feels feverish at times. She has a poor appetite. Physical Exam Vital Signs: Temp Pulse Resp BP Pulse Ox 98.2 F 75 22 H 106/57 L 100 12/13/16 11:36 12/13/16 11:36 12/13/16 11:36 12/13/16 11:36 12/13/16 11:36 Intake & Output 12/12/16 12/13/16 12/14/16 06:59 06:59 06:59 Intake Total 1371 125 Balance 1371 125 Weight 88.2 kg GENERAL: No acute distress, ill-appearing HEENT: Conjunctiva clear, nonicteric, moist mucous membranes, no JVD, midline trachea RESPIRATORY: Diffuse bilateral rhonchi/wheezes CARDIAC: Regular rate and rhythm, no murmurs/gallops/rubs ABDOMEN: Soft, nondistended, nontender, positive bowel sounds, no rebound, no guarding EXTREMETIES: No edema, cyanosis, clubbing NEUROLOGIC: Alert, oriented to person/place/time, CN's grossly intact, no focal deficits SKIN: No rash, wounds PSYCH: Normal mood, normal affect Results Laboratory Results: 12/13/16 04:32 12/13/16 04:32 12/13/16 12/13/16 04:32 04:32 WBC 23.0 H RBC 4.32 Hgb 12.1 Hct 36.7 MCV 85 MCH 28.0 MCHC 33.0 RDW 14.5 H Plt Count 231 Seg Neutrophils % Not Reportable Lymphocytes % Not Reportable Monocytes % Not Reportable Eosinophils % Not Reportable Basophils % Not Reportable Absolute Neutrophils Not Reportable Absolute Lymphocytes Not Reportable Absolute Monocytes Not Reportable Absolute Eosinophils Not Reportable Absolute Basophils Not Reportable Sodium 142.4 Potassium 4.1 Chloride 106 Carbon Dioxide 25 Anion Gap 11 BUN 10 Creatinine 0.66 Est GFR ( Amer) > 60 Est GFR (Non-Af Amer) > 60 Glucose 163 H Calcium 8.9 Impressions: Chest X-Ray 12/12/16 14:17 IMPRESSION: Pulmonary vascular congestion with no localized pulmonary infiltrates. Assessment & Plan - Diagnosis (1) Acute hypoxemic respiratory failure Is this a current diagnosis for this admission?: YesPlan: Continue oxygen supplementation. (2) Sepsis Qualifiers: Sepsis type: sepsis due to unspecified organism Qualified Code(s): A41.9 - Sepsis, unspecified organism Is this a current diagnosis for this admission?: YesPlan: Secondary to pneumonia. (3) Pneumonia Qualifiers: Pneumonia type: due to unspecified organism Laterality: right Lung location: middle lobe of lung Qualified Code(s): J18.1 - Lobar pneumonia, unspecified organism Is this a current diagnosis for this admission?: YesPlan: Likely bacterial. Failed outpatient Augmentin. Continue IV Levaquin initiated in the emergency department. Check blood cultures and sputum culture. And IV cefepime and IV vancomycin pending further blood and sputum culture results. (4) Hypertension Is this a current diagnosis for this admission?: YesPlan: Hold outpatient medications for now secondary to hypotension associated with sepsis. As needed IV hydralazine. (5) Tobacco abuse Is this a current diagnosis for this admission?: Yes - Time Time Spent with patient: 35 or more minutes Anticipated discharge: Home Within: within 72 hours
[2016-12-13] MEDS: BENZONATATE 100 MG CAPSULE PO PRN ×2 (14:56→21:52)
[2016-12-14] MEDS ORDERED: GABAPENTIN 300 MG CAPSULE PO SCH (03:30)
[2016-12-14] MEDS: VANCOMYCIN HCL 1,000 MG in DEXTROSE 5%-WATER 250 ML IV SCH ×3 (03:36→18:08)
[2016-12-14 06:33] LABS: ABSOLUTE BASOPHILS # (AUTO) 0.1 10^3/uL (0.0-0.2); ABSOLUTE EOSINOPHILS # (AUTO) 0.2 10^3/uL (0.0-0.6); ABSOLUTE LYMPHOCYTES (AUTO) 3.1 10^3/uL (0.5-4.7); ABSOLUTE MONOCYTES (AUTO) 1.4 10^3/uL (0.1-1.4); ABSOLUTE NEUT (AUTO) 12.1 10^3/uL (1.7-8.2); BASOPHILS % (AUTO) 0.3 % (0-2); EOSINOPHILS % (AUTO) 1.3 % (0-6); HEMATOCRIT 34.4 % (36.0-47.0); HGB HCT DIFFERENCE -1.4; LYMPHOCYTES % (AUTO) 18.5 % (13-45); MEAN CORPUSCULAR HEMOGLOBIN 27.3 pg (27.0-33.4); MEAN CORPUSCULAR HGB CONC 31.9 g/dL (32.0-36.0); MEAN CORPUSCULAR VOLUME 86 fl (80-97); MONOCYTES % (AUTO) 8.1 % (3-13); RED BLOOD COUNT 4.01 10^6/uL (3.72-5.28); RED CELL DISTRIBUTION WIDTH 14.6 % (11.5-14.0); SEGMENTED NEUTROPHILS % (AUTO) 71.8 % (42-78); WHITE BLOOD COUNT 16.9 10^3/uL (4.0-10.5)
[2016-12-14 06:53] LABS: ANION GAP 10 (5-19); BLOOD UREA NITROGEN 10 mg/dL (7-20); CALCIUM 8.9 mg/dL (8.4-10.2); CARBON DIOXIDE 24 mmol/L (22-30); CHLORIDE 108 mmol/L (98-107); CREATININE RESULT 0.63 mg/dL (0.52-1.25); GLUCOSE 101 mg/dL (75-110); POTASSIUM 4.2 mmol/L (3.6-5.0); SODIUM 141.6 mmol/L (137-145)
[2016-12-14] MEDS: CEFEPIME 1 GM/D5W RTU 50 ML IV SCH ×2 (09:00→23:04)
[2016-12-14] MEDS: GUAIFENESIN 600 MG TABLET.SA PO SCH ×2 (09:00→23:04)
[2016-12-14] MEDS: LEVOFLOXACIN 750 MG/D5W RTU 150 ML IV SCH (09:00)
[2016-12-14] MEDS: ENOXAPARIN SODIUM INJ 40 MG/0.4 ML DISP.SYRIN SUBCUT SCH (09:01)
[2016-12-14] MEDS: OXYCODONE HCL IR 5 MG TABLET PO PRN ×2 (09:06→23:55)
[2016-12-14] MEDS: NICOTINE 7 MG/24 HR PATCH.TD24 TD PRN (09:07)
--- NOTE | 2016-12-14 10:39 | PDOC PROGRESS REPORT ---
Subjective Progress Note for:: 12/14/16 Subjective:: Patient states she feels slightly better than yesterday with regard to fatigue and shortness of breath. Her appetite has improved. She denies fevers or chills. Physical Exam Vital Signs: Temp Pulse Resp BP Pulse Ox 98.3 F 96 20 119/60 97 12/14/16 08:00 12/14/16 08:00 12/14/16 08:00 12/14/16 08:00 12/14/16 08:00 Intake & Output 12/13/16 12/14/16 12/15/16 06:59 06:59 06:59 Intake Total 1371 3380 Balance 1371 3380 Weight 88.2 kg 89.84 kg GENERAL: No acute distress, ill-appearing HEENT: Conjunctiva clear, nonicteric, moist mucous membranes, no JVD, midline trachea RESPIRATORY: Diffuse bilateral rhonchi/wheezes CARDIAC: Regular rate and rhythm, no murmurs/gallops/rubs ABDOMEN: Soft, nondistended, nontender, positive bowel sounds, no rebound, no guarding EXTREMETIES: No edema, cyanosis, clubbing NEUROLOGIC: Alert, oriented to person/place/time, CN's grossly intact, no focal deficits SKIN: No rash, wounds PSYCH: Normal mood, normal affect Results Laboratory Results: 12/14/16 06:05 12/14/16 06:05 12/14/16 12/14/16 06:05 06:05 WBC 16.9 H RBC 4.01 Hgb 11.0 L Hct 34.4 L MCV 86 MCH 27.3 MCHC 31.9 L RDW 14.6 H Plt Count 232 Seg Neutrophils % 71.8 Lymphocytes % 18.5 Monocytes % 8.1 Eosinophils % 1.3 Basophils % 0.3 Absolute Neutrophils 12.1 H Absolute Lymphocytes 3.1 Absolute Monocytes 1.4 Absolute Eosinophils 0.2 Absolute Basophils 0.1 Sodium 141.6 Potassium 4.2 Chloride 108 H Carbon Dioxide 24 Anion Gap 10 BUN 10 Creatinine 0.63 Est GFR ( Amer) > 60 Est GFR (Non-Af Amer) > 60 Glucose 101 Calcium 8.9 12/12/16 20:45 Sputum Gram Stain - Final 12/12/16 20:45 Sputum Sputum Culture - Final NORMAL CARLOS A Impressions: Chest X-Ray 12/12/16 14:17 IMPRESSION: Pulmonary vascular congestion with no localized pulmonary infiltrates. Assessment & Plan - Diagnosis (1) Acute hypoxemic respiratory failure Is this a current diagnosis for this admission?: YesPlan: Continue oxygen supplementation. (2) Sepsis Qualifiers: Sepsis type: sepsis due to unspecified organism Qualified Code(s): A41.9 - Sepsis, unspecified organism Is this a current diagnosis for this admission?: YesPlan: Secondary to pneumonia. White blood count improving. Afebrile. Blood pressure stable. (3) Pneumonia Qualifiers: Pneumonia type: due to unspecified organism Laterality: right Lung location: middle lobe of lung Qualified Code(s): J18.1 - Lobar pneumonia, unspecified organism Is this a current diagnosis for this admission?: YesPlan: Likely bacterial. Failed outpatient Augmentin. Continue IV Levaquin, IV cefepime, and IV vancomycin. Blood and sputum culture no growth. (4) Hypertension Is this a current diagnosis for this admission?: YesPlan: Hold outpatient medications for now secondary to hypotension associated with sepsis. As needed IV hydralazine. (5) Tobacco abuse Is this a current diagnosis for this admission?: Yes (6) COPD exacerbation Is this a current diagnosis for this admission?: YesPlan: IV Solumedrol, nebs. - Time Time Spent with patient: 35 or more minutes
[2016-12-14] MEDS ORDERED: METHYLPREDNISOLONE INJ 40 MG/1 ML SDV IV ONE (11:00)
[2016-12-14] MEDS: DEXTROSE 5%-1/2 NORMAL SALINE 1,000 ML IV PRN (11:06)
[2016-12-14] MEDS: ALBUTEROL SULFATE 0.083% NEB 2.5 MG/3 ML AMPUL NEB PRN ×3 (11:43→21:06)
[2016-12-14] MEDS ORDERED: GABAPENTIN 300 MG CAPSULE PO ONE (12:15)
[2016-12-14] MEDS ORDERED: HYDRALAZINE HCL INJ/PF 20 MG/1 ML SDV IV PRN (14:47)
[2016-12-14] MEDS ORDERED: METHYLPREDNISOLONE INJ 40 MG/1 ML SDV IV SCH (18:00)
[2016-12-14] MEDS: GABAPENTIN 300 MG CAPSULE PO SCH (23:03)
[2016-12-14] MEDS: METHYLPREDNISOLONE INJ 125 MG/2 ML SDV IV SCH (23:04)
[2016-12-15] MEDS: DEXTROSE 5%-1/2 NORMAL SALINE 1,000 ML IV PRN (03:33)
[2016-12-15] MEDS: VANCOMYCIN HCL 1,000 MG in DEXTROSE 5%-WATER 250 ML IV SCH (03:33)
[2016-12-15 04:45] LABS: ABSOLUTE LYMPHOCYTES (AUTO) 1.5 10^3/uL (0.5-4.7); ABSOLUTE MONOCYTES (AUTO) 0.5 10^3/uL (0.1-1.4); ABSOLUTE NEUT (AUTO) 17.6 10^3/uL (1.7-8.2); BASOPHILS % (AUTO) 0.2 % (0-2); HEMATOCRIT 35.9 % (36.0-47.0); HEMOGLOBIN 11.8 g/dL (12.0-15.5); HGB HCT DIFFERENCE -0.5; LYMPHOCYTES % (AUTO) 7.4 % (13-45); MEAN CORPUSCULAR HEMOGLOBIN 28.1 pg (27.0-33.4); MEAN CORPUSCULAR HGB CONC 32.9 g/dL (32.0-36.0); MEAN CORPUSCULAR VOLUME 85 fl (80-97); MONOCYTES % (AUTO) 2.3 % (3-13); SEGMENTED NEUTROPHILS % (AUTO) 90.1 % (42-78); WHITE BLOOD COUNT 19.5 10^3/uL (4.0-10.5)
[2016-12-15 04:56] LABS: ANION GAP 9 (5-19); BLOOD UREA NITROGEN 14 mg/dL (7-20); CALCIUM 9.4 mg/dL (8.4-10.2); CARBON DIOXIDE 25 mmol/L (22-30); CHLORIDE 110 mmol/L (98-107); CREATININE RESULT 0.68 mg/dL (0.52-1.25); GLUCOSE 170 mg/dL (75-110); POTASSIUM 4.6 mmol/L (3.6-5.0); SODIUM 143.8 mmol/L (137-145)
[2016-12-15] MEDS: GABAPENTIN 300 MG CAPSULE PO SCH (06:39)
[2016-12-15] MEDS: METHYLPREDNISOLONE INJ 125 MG/2 ML SDV IV SCH (06:39)
[2016-12-15] MEDS: ENOXAPARIN SODIUM INJ 40 MG/0.4 ML DISP.SYRIN SUBCUT SCH (07:58)
--- NOTE | 2016-12-15 09:13 | PDOC DISCHARGE SUMMARY ---
General - Admit/Disc Date/PCP Admission Date/Primary Care Provider: 12/12/16 16:28 MIRTHA ARTEAGA MD Discharge Date: 12/15/16 - Discharge Diagnosis (1) Acute hypoxemic respiratory failure Is this a current diagnosis for this admission?: Yes (2) Sepsis Is this a current diagnosis for this admission?: Yes (3) Pneumonia Is this a current diagnosis for this admission?: Yes (4) Hypertension Is this a current diagnosis for this admission?: Yes (5) Tobacco abuse Is this a current diagnosis for this admission?: Yes (6) COPD exacerbation Is this a current diagnosis for this admission?: Yes - Additional Information Resuscitation Status: Full Code Discharge Diet: Regular Discharge Activity: Activity As Tolerated Home Medications: Albuterol Sulfate [Proair HFA Inhalation Aerosol 8.5 gm MDI] 2 puff IH Q4HP PRN 12/12/16 Gabapentin [Neurontin 300 mg Capsule] 900 mg PO TID 12/12/16 Omeprazole 20 mg PO DAILY 12/12/16 Oxycodone HCl [Oxycontin Sr 10 mg Tablet] 10 mg PO Q12 12/12/16 Valsartan/Hydrochlorothiazide [Valsartan-Hctz 160-25 mg Tab] 1 tab PO DAILY Benzonatate [Tessalon Perles 100 mg Capsule] 100 mg PO Q8HP PRN #10 capsule 09/01 Levofloxacin [Levaquin 750 mg Tablet] 750 mg PO DAILY #7 tablet 12/15/16 Nicotine [Nicoderm 7 mg/24 Hr Transdermal Patch] 1 each TD DAILYP PRN #10 patch.td24 12/15/16 Prednisone [Deltasone 10 mg Tablet] 10 mg PO ASDIR PRN #21 tablet 12/15/16 History of Present Illness Patient complains of: Shortness of breath History of Present Illness: SARA GRAF is a 36 year old female with several day history of cough and fevers. Patient was treated 2 days ago for acute bronchitis with oral Augmentin. She presents to the emergency department today with worsening symptoms and is found to be hypoxic with O2 sat of 82% on room air. She feels generally ill. She has had poor appetite. She has had fevers and chills. She is a smoker. Hospital Course Hospital Course: Patient was admitted for shortness of breath related to pneumonia and COPD/ asthma exacerbation. Patient normally takes albuterol for asthma. She also takes Flovent. She was treated 2 days prior to admission with Augmentin for bronchitis. Her breathing worsened despite Augmentin. She was admitted and placed on IV Solu-Medrol, IV Levaquin, IV cefepime. Culture workup was negative. Patient clinically improved and was asking to be discharged from the hospital. I discharged her on prednisone taper and oral Levaquin. Patient had doxycycline allergy noted. I did not want to use Bactrim secondary to prior allergy to other sulfa derivatives including naproxen and ibuprofen. I did not want to use Augmentin she had failed this as an outpatient. Patient was advised to discontinue smoking. She was prescribed a NicoDerm patch. Physical Exam Vital Signs: Temp Pulse Resp BP Pulse Ox 98.0 F 73 18 124/68 99 12/15/16 07:35 12/15/16 07:35 12/15/16 07:35 12/15/16 07:35 12/15/16 07:36 Intake & Output 12/14/16 12/15/16 12/16/16 06:59 06:59 06:59 Intake Total 3380 3557 Balance 3380 3557 Weight 89.84 kg 90.775 kg GENERAL: No acute distress HEENT: Conjunctiva clear, nonicteric, moist mucous membranes, no JVD, midline trachea RESPIRATORY: Faint bilateral wheezes, good air excursion CARDIAC: Regular rate and rhythm, no murmurs/gallops/rubs ABDOMEN: Soft, nondistended, nontender, positive bowel sounds, no rebound, no guarding EXTREMETIES: No edema, cyanosis, clubbing NEUROLOGIC: Alert, oriented to person/place/time, CN's grossly intact, no focal deficits SKIN: No rash, wounds PSYCH: Normal mood, normal affect Results Laboratory Results: 12/15/16 04:30 12/15/16 04:30 12/15/16 12/15/16 04:30 04:30 WBC 19.5 H RBC 4.20 Hgb 11.8 L Hct 35.9 L MCV 85 MCH 28.1 MCHC 32.9 RDW 14.0 Plt Count 269 Seg Neutrophils % 90.1 H Lymphocytes % 7.4 L Monocytes % 2.3 L Eosinophils % 0.0 Basophils % 0.2 Absolute Neutrophils 17.6 H Absolute Lymphocytes 1.5 Absolute Monocytes 0.5 Absolute Eosinophils 0.0 Absolute Basophils 0.0 Sodium 143.8 Potassium 4.6 Chloride 110 H Carbon Dioxide 25 Anion Gap 9 BUN 14 Creatinine 0.68 Est GFR ( Amer) > 60 Est GFR (Non-Af Amer) > 60 Glucose 170 H Calcium 9.4 12/12/16 20:45 Sputum Gram Stain - Final 12/12/16 20:45 Sputum Sputum Culture - Final NORMAL CARLOS A Impressions: Chest X-Ray 12/12/16 14:17 IMPRESSION: Pulmonary vascular congestion with no localized pulmonary infiltrates. Qualifiers PATEINT BEING DISCHARGED WITH ANY OF THE FOLLOWING DIAGNOSIS?: No Plan Time Spent: Less than 30 Minutes
[2016-12-15] MEDS: CEFEPIME 1 GM/D5W RTU 50 ML IV SCH (09:14)
[2016-12-15] MEDS: GUAIFENESIN 600 MG TABLET.SA PO SCH (09:14)
[2016-12-15] MEDS ORDERED: LEVOFLOXACIN 750 MG TABLET PO SCH (10:00)
[2016-12-15 10:33] VITALS: BP 119/60
== END 2016-12-15 11:00 | disposition home or self-care (01) | DRG 871 ==
LOC: ER 13:53 → EH 16:19 → UNDOADMIN 16:19 → EH 16:28 → 3W 18:00
PROVIDERS: ADMIT Internal Medicine; ATTEND Internal Medicine
PROC: 3E0F73Z Introduction of Anti-inflammatory into Respiratory Tract, Via Natural or Artificial Opening (ICD-10-PCS; principal; 2016-12-12)
DX: A41.9 Sepsis, unspecified organism (principal); J18.9 Pneumonia, unspecified organism; J96.01 Acute respiratory failure with hypoxia; J44.1 Chronic obstructive pulmonary disease with (acute) exacerbation; R65.20 Severe sepsis without septic shock; I10 Essential (primary) hypertension; F17.200 Nicotine dependence, unspecified, uncomplicated; K21.9 Gastro-esophageal reflux disease without esophagitis; F41.9 Anxiety disorder, unspecified; Z88.2 Allergy status to sulfonamides; Z79.899 Other long term (current) drug therapy; Z90.49 Acquired absence of other specified parts of digestive tract; Z90.710 Acquired absence of both cervix and uterus; Z82.49 Family history of ischemic heart disease and other diseases of the circulatory system; Z82.3 Family history of stroke; Z83.3 Family history of diabetes mellitus; Z80.9 Family history of malignant neoplasm, unspecified; Z88.1 Allergy status to other antibiotic agents; Z88.8 Allergy status to other drugs, medicaments and biological substances
CPT/HCPCS: 36415; 71010; 80048; 80053; 80202; 81001; 82550; 82553; 82803; 83605; 83880; 84484; 85025; 87040; 87070; 87205; 93005; 93010; 96365; 99291; 99406; J0692; J1650; J1956; J2920; J2930; J3370; J3490; J7030; J7060

== ENCOUNTER 2017-01-09 15:03 | Emergency (ER) | payer MEDICAID ==
[2017-01-09 15:19] VITALS: BP 128/87
--- NOTE | 2017-01-09 15:41 | ER Document Report ---
HPI - HPI Patient complains to provider of: r knee pain Onset: Other - 4 days Onset/Duration: Persistent Quality of pain: Sharp Pain Level: 3 Context: Patient states she was going down stairs 4 days ago and twisted her right knee. Patient complains of continued pain and swelling since then. Patient states that the pain worsens with flexion. Associated Symptoms: Other - Right knee joint pain Exacerbated by: Standing, Movement, Walking Relieved by: Denies Similar symptoms previously: No Recently seen / treated by doctor: No - ROS ROS below otherwise negative: Yes Systems Reviewed and Negative: Yes All other systems reviewed and negative - CONSTITUTIONAL Constitutional: DENIES: Fever, Chills - NEURO Neurology: DENIES: Weakness - REPRODUCTIVE LMP: hyst Reproductive: DENIES: : - MUSCULOSKELETAL Musculoskeletal: REPORTS: Extremity pain, Swelling. 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 Denies: Hx Peritoneal Dialysis GI Medical History: Reports: Hx Gastroesophageal Reflux Disease Musculoskeltal Medical History: Reports Hx Musculoskeletal Trauma - fr arm, Reports Other - Chronic back pain, sciatica Psychiatric Medical History: Reports: Hx Anxiety Denies: Hx Depression Traumatic Medical History: Reports: Hx Fractures - right arm Past Surgical History: Reports: Hx Section - x3, Hx Cholecystectomy, Hx Herniorrhaphy, Hx Hysterectomy, Hx Inguinal Hernia, Hx Oral Surgery - teeth taken out - Immunizations Immunizations up to date: Yes Hx Diphtheria, Pertussis, Tetanus Vaccination: Yes Vertical Provider Document - CONSTITUTIONAL Agree With Documented VS: Yes Exam Limitations: No Limitations General Appearance: WD/WN, No Apparent Distress - INFECTION CONTROL TRAVEL OUTSIDE OF THE [place] IN LAST 30 DAYS: No - HEENT HEENT: Atraumatic, Normocephalic - NECK Neck: Normal Inspection - RESPIRATORY Respiratory: No Respiratory Distress O2 Sat by Pulse Oximetry: 96 - CARDIOVASCULAR Pulses: Normal: Posterior tibial, Dorsalis pedis - MUSCULOSKELETAL/EXTREMETIES Musculoskeletal/Extremeties: MAEW, Tender - Right knee joint tenderness to lateral compartment patient with moderate joint effusion. No laxity with varus or valgus maneuvers. Normal skin color and temperature overlying joint. - NEURO Level of Consciousness: Awake, Alert, Appropriate Motor/Sensory: No Motor Deficit, No Sensory Deficit - DERM Integumentary: Warm, Dry, No Rash Course - Re-evaluation Re-evalutation: 01/09/17 17:28 Patient states that she is not allergic to ibuprofen and is requesting a prescription for this medication. Patient states she is allergic to naproxen but has taken ibuprofen and Motrin without any adverse reactions - Vital Signs Vital signs: Temp Pulse Resp BP Pulse Ox 98.4 F 115 H 18 128/87 H 96 01/09/17 15:18 01/09/17 15:18 01/09/17 15:18 01/09/17 15:18 01/09/17 15:18 - Diagnostic Test Radiology reviewed: Image reviewed, Reports reviewed Procedures - Immobilization Right Knee Pre-Proc Neuro Vasc Exam: Normal Immobilizer type: Knee immobilizer Performed by: PCT Post-Proc Neuro Vasc Exam: Normal Alignment checked and good: Yes Discharge - Discharge Clinical Impression: Sprain of knee Qualifiers: Encounter type: initial encounter Involved ligament of knee: unspecified ligament Laterality: right Qualified Code(s): S83.91XA - Sprain of unspecified site of right knee, initial encounter Condition: Stable Disposition: HOME, SELF-CARE Instructions: Use of Crutches ([facility]), Suspected Internal Knee Injury ([facility]), Sprained Knee ([facility]), Knee Immobilizing Splint ([facility]), Ice & Elevation ([facility]) Additional Instructions: Return immediately for any new or worsening symptoms Followup with your primary care provider, call tomorrow to make a followup appointment Follow up with your orthopedic doctor for further evaluation, call tomorrow for an appointment Take your pain medication at home as prescribed Prescriptions: Ibuprofen [Motrin 600 Mg Tablet] 600 mg PO Q6H PRN #20 tablet PRN Reason: for pain Forms: Return to Work Referrals: MIRTHA ARTEAGA MD [Primary Care Provider] - Follow up as needed EDWARD NORTON PA-C [NO LOCAL MD] - Follow up in 3-5 days
--- NOTE | 2017-01-09 17:03 | RADIOLOGY REPORT (SQ) ---
EXAM DESCRIPTION: KNEE RIGHT 4 VIEWS COMPLETED DATE/TIME: 01/09/2017 4:41 pm REASON FOR STUDY: twisted going down stairs, +swelling COMPARISON: None. NUMBER OF VIEWS: Four views. TECHNIQUE: AP, lateral, and both oblique radiographic images acquired of the right knee. LIMITATIONS: None. FINDINGS: MINERALIZATION: Normal. BONES: No acute fracture or dislocation. No worrisome bone lesions. JOINT: Likely joint fluid. SOFT TISSUES: No metallic foreign bodies. OTHER: No other significant finding. IMPRESSION: No acute fractures. There is likely joint fluid. TECHNICAL DOCUMENTATION: JOB ID: [id number] [employer]- All Rights Reserved
== END 2017-01-09 17:30 | disposition home or self-care (01) ==
LOC: ER 15:03
DX: S83.91XA Sprain of unspecified site of right knee, initial encounter (principal); X50.0XXA Overexertion from strenuous movement or load, initial encounter; F17.200 Nicotine dependence, unspecified, uncomplicated; I10 Essential (primary) hypertension; Z87.442 Personal history of urinary calculi; Z90.49 Acquired absence of other specified parts of digestive tract; Z90.710 Acquired absence of both cervix and uterus
CPT/HCPCS: 99283

== ENCOUNTER 2017-06-20 09:05 | Emergency (ER) | payer SELFPAY ==
--- NOTE | 2017-06-20 09:34 | ER Document Report ---
ED Medical Screen (RME) - General Chief Complaint: Back Pain Stated Complaint: BACK PAIN Time Seen by Provider: 06/20/17 09:27 Notes: 37-year-old female with chronic low back pain. Reports getting up this morning with pain in her low back and numbness in the left leg. She did feel a knot in her left low back side which is a new thing. She does take Neurontin. She had been on narcotic management until about mid March of this year. Her last epidural steroid injection was sometime in 2015, her last MRI was probably in early 2015. She does have an L4-5 disc by history. I have greeted and performed a rapid initial assessment of this patient. A comprehensive ED assessment and evaluation of the patient, analysis of test results and completion of the medical decision making process will be conducted by additional ED providers. TRAVEL OUTSIDE OF THE [place] IN LAST 30 DAYS: No - Related Data Allergies/Adverse Reactions: doxycycline Allergy (Verified 06/20/17 09:10) naproxen [From Naprosyn] Allergy (Verified 06/20/17 09:10) Past Medical History - Social History Chew tobacco use (# tins/day): No Frequency of alcohol use: None Drug Abuse: None Family history: Reviewed & Not Pertinent - Past Medical History Cardiac Medical History: Reports: Hx Hypertension Pulmonary Medical History: Reports: Hx Bronchitis, Hx Pneumonia Denies: Hx Tuberculosis Renal/ Medical History: Reports: Hx Kidney Stones. Denies: Hx Peritoneal Dialysis GI Medical History: Reports: Hx Gastroesophageal Reflux Disease Musculoskeltal Medical History: Comment Only Hx Arthritis - chronic back pain, Reports Hx Musculoskeletal Trauma - fr arm Psychiatric Medical History: Reports: Hx Anxiety Denies: Hx Depression Traumatic Medical History: Reports: Hx Fractures - right arm Past Surgical History: Reports: Hx Section - x3, Hx Cholecystectomy, Hx Herniorrhaphy, Hx Hysterectomy, Hx Inguinal Hernia, Hx Oral Surgery - teeth taken out - Immunizations Immunizations up to date: Yes Hx Diphtheria, Pertussis, Tetanus Vaccination: Yes Physical Exam - Vital signs Vitals: Temp Pulse Resp BP Pulse Ox 98.4 F 105 H 18 136/92 H 97 06/20/17 09:15 06/20/17 09:15 06/20/17 09:15 06/20/17 09:15 06/20/17 09:15 Course - Vital Signs Vital signs: Temp Pulse Resp BP Pulse Ox 98.4 F 105 H 18 136/92 H 97 06/20/17 09:15 06/20/17 09:15 06/20/17 09:15 06/20/17 09:15 06/20/17 09:15
--- NOTE | 2017-06-20 10:27 | ER Document Report ---
ED Neck/Back Problem - General Chief Complaint: Back Pain Stated Complaint: BACK PAIN Time Seen by Provider: 06/20/17 09:27 Notes: 37 yo female with chronic low back pain presents to ED c/o increased pain in her left low back and numbness in the left leg. She did feel a knot in her left low back side. Pt presently takes Neurontin. Pt reports she was in pain management until about mid March of this year when she lost her insurance. Her last epidural steroid injection was sometime in 2015, her last MRI was probably in early 2015 which shows MINIMAL DESICCATION OF THE L4-L5 DISC. MINIMAL POSTERIOR BULGING WITH ANNULAR FISSURE. NO DISC PROTRUSION OR HERNIATION, STENOSIS, OR IMPINGEMENT. pt denies any new trauma, no fever, no bowel/bladder dysfunction. TRAVEL OUTSIDE OF THE [place] IN LAST 30 DAYS: No - HPI Onset: This morning Onset: Sudden Timing: Constant Quality of pain: Sharp Associated symptoms: Radiation to leg - left leg feels numb Exacerbated by: Other - movement Relieved by: Nothing Similar symptoms previously: Yes Recently seen / treated by doctor: No - Related Data Allergies/Adverse Reactions: doxycycline Allergy (Verified 06/20/17 09:10) naproxen [From Naprosyn] Allergy (Verified 06/20/17 09:10) Past Medical History - General Information source: Patient - Social History Smoking Status: Current Every Day Smoker Chew tobacco use (# tins/day): No Frequency of alcohol use: None Drug Abuse: None Lives with: Family Family History: CAD, CVA, DM, Hyperlipidemia, Hypertension, Malignancy, Other - GB disease Patient has suicidal ideation: No Patient has homicidal ideation: No - Past Medical History Cardiac Medical History: Reports: Hx Hypertension Pulmonary Medical History: Reports: Hx Bronchitis, Hx Pneumonia Denies: Hx Tuberculosis Renal/ Medical History: Reports: Hx Kidney Stones. Denies: Hx Peritoneal Dialysis GI Medical History: Reports: Hx Gastroesophageal Reflux Disease Musculoskeltal Medical History: Comment Only Hx Arthritis - chronic back pain, Reports Hx Musculoskeletal Trauma - fr arm Psychiatric Medical History: Reports: Hx Anxiety Denies: Hx Depression Traumatic Medical History: Reports: Hx Fractures - right arm Past Surgical History: Reports: Hx Section - x3, Hx Cholecystectomy, Hx Herniorrhaphy, Hx Hysterectomy, Hx Inguinal Hernia, Hx Oral Surgery - teeth taken out - Immunizations Immunizations up to date: Yes Hx Diphtheria, Pertussis, Tetanus Vaccination: Yes Review of Systems - Review of Systems Constitutional: No symptoms reported EENT: No symptoms reported Cardiovascular: No symptoms reported Respiratory: No symptoms reported Gastrointestinal: No symptoms reported Genitourinary: No symptoms reported Female Genitourinary: No symptoms reported Musculoskeletal: See HPI, Back pain Skin: No symptoms reported Hematologic/Lymphatic: No symptoms reported Neurological/Psychological: No symptoms reported Physical Exam - Vital signs Vitals: Temp Pulse Resp BP Pulse Ox 98.4 F 105 H 18 136/92 H 97 06/20/17 09:15 06/20/17 09:15 06/20/17 09:15 06/20/17 09:15 06/20/17 09:15 Interpretation: Normal - General General appearance: Appears well, Alert - HEENT Head: Normocephalic, Atraumatic Eyes: Normal Pupils: PERRL - Respiratory Respiratory status: No respiratory distress Chest status: Nontender Breath sounds: Normal Chest palpation: Normal - Cardiovascular Rhythm: Regular Heart sounds: Normal auscultation Murmur: No - Abdominal Inspection: Normal Distension: No distension Bowel sounds: Normal Tenderness: Nontender Organomegaly: No organomegaly - Back Back: Tender - left lumbar paraspinal tenderness. + left SI tenderness. No: Vertebra tenderness - Extremities General upper extremity: Normal inspection, Nontender, Normal color, Normal ROM , Normal temperature General lower extremity: Normal inspection, Nontender, Normal color, Normal ROM , Normal temperature, Normal weight bearing. No: Adair's sign - Neurological Neuro grossly intact: Yes Cognition: Normal Orientation: AAOx4 [place] Coma Scale Eye Opening: Spontaneous [place] Coma Scale Verbal: Oriented [place] Coma Scale Motor: Obeys Commands [place] Coma Scale Total: 15 Speech: Normal Motor strength normal: LUE, RUE, LLE, RLE Sensory: Normal - Psychological Associated symptoms: Normal affect, Normal mood - Skin Skin Temperature: Warm Skin Moisture: Dry Skin Color: Normal Course - Re-evaluation Re-evalutation: 06/20/17 10:35 pt presents with chronic low back pain without signs of spinal cord compression , cauda equina, infection, aneurysm or other serious etiology. pt is neurologically intact, indpendently and steadily ambulatory without paresthesia or neurologic deficits. Given the extremely low risk of these diagnoses, further testing and evaluation is not indicated. Home care, f/u with pcp, ED return precautions discussed with pt. pt agreeable and stable for discharge. short course of muscle relaxant and anti inflammatory medication given - Vital Signs Vital signs: Temp Pulse Resp BP Pulse Ox 98.4 F 105 H 18 136/92 H 97 06/20/17 09:15 06/20/17 09:15 06/20/17 09:15 06/20/17 09:15 06/20/17 09:15 Discharge - Discharge Clinical Impression: Low back pain Qualifiers: Chronicity: chronic Back pain laterality: midline Sciatica presence: with sciatica Sciatica laterality: sciatica of left side Qualified Code(s): M54.42 - Lumbago with sciatica, left side Condition: Stable Disposition: HOME, SELF-CARE Instructions: Ibuprofen (General) ([facility]), Ice Packs ([facility]), Low Back Pain ([facility]), Muscle Relaxers ([facility]), Warm Packs ([facility]) Additional Instructions: take medications as prescribed alternate ice/heat to area recommend topical anesthetic, topical lidocaine patches are over the counter follow up with your primary care for further evaluation and treatment Prescriptions: Ibuprofen [Motrin 800 Mg Tablet] 800 mg PO Q6H #20 tablet Methocarbamol [Robaxin 500 Mg Tablet] 1,000 mg PO Q6 #30 tablet
[2017-06-20 10:41] VITALS: BP 117/89
== END 2017-06-20 10:40 | disposition home or self-care (01) ==
LOC: ER 09:05
DX: M54.42 Lumbago with sciatica, left side (principal); M54.9 Dorsalgia, unspecified; M54.5 Low back pain; F17.200 Nicotine dependence, unspecified, uncomplicated
CPT/HCPCS: 99283

== ENCOUNTER 2017-10-30 16:57 | Emergency (ER) | payer BC ==
--- NOTE | 2017-10-30 17:28 | ER Document Report ---
ED Cardiac - General Chief Complaint: Chest Pain Stated Complaint: CHEST PAIN Time Seen by Provider: 10/30/17 17:16 Notes: The patient is a 37-year-old female, past medical history chronic pain, presents with 1 day of left-sided chest pain and back pain. She has had this before and it resolves. She denies coughing, hemoptysis, leg swelling, dyspnea on exertion, numbness, tingling, abdominal pain, fevers, headache or rash. TRAVEL OUTSIDE OF THE [place] IN LAST 30 DAYS: No - Related Data Allergies/Adverse Reactions: doxycycline Allergy (Verified 10/30/17 17:16) naproxen [From Naprosyn] Allergy (Verified 10/30/17 17:16) Past Medical History - General Information source: Patient - Social History Smoking Status: Current Every Day Smoker Chew tobacco use (# tins/day): No Frequency of alcohol use: None Drug Abuse: None Family History: CAD, CVA, DM, Hyperlipidemia, Hypertension, Malignancy, Other - GB disease Patient has suicidal ideation: No Patient has homicidal ideation: No - Past Medical History Cardiac Medical History: Reports: Hx Hypertension Pulmonary Medical History: Reports: Hx Bronchitis, Hx Pneumonia Denies: Hx Tuberculosis Renal/ Medical History: Reports: Hx Kidney Stones. Denies: Hx Peritoneal Dialysis GI Medical History: Reports: Hx Gastroesophageal Reflux Disease Musculoskeltal Medical History: Reports Hx Arthritis - chronic back pain, Reports Hx Musculoskeletal Trauma - fr arm Psychiatric Medical History: Reports: Hx Anxiety, Hx Bipolar Disorder Denies: Hx Depression Traumatic Medical History: Reports: Hx Fractures - right arm Past Surgical History: Reports: Hx Section - x3, Hx Cholecystectomy, Hx Herniorrhaphy, Hx Hysterectomy, Hx Inguinal Hernia, Hx Oral Surgery - teeth taken out - Immunizations Immunizations up to date: Yes Hx Diphtheria, Pertussis, Tetanus Vaccination: Yes Review of Systems - Review of Systems Notes: REVIEW OF SYSTEMS: CONSTITUTIONAL: -fevers, -chills EENT: -eye pain, -difficulty swallowing, -nasal congestion CARDIOVASCULAR: +chest pain, -syncope. RESPIRATORY: -cough, +SOB GASTROINTESTINAL: -abdominal pain, -nausea, -vomiting, -diarrhea GENITOURINARY: -dysuria, -hematuria MUSCULOSKELETAL: -back pain, -neck pain SKIN: -rash or skin lesions. HEMATOLOGIC: -easy bruising or bleeding. LYMPHATIC: -swollen, enlarged glands. NEUROLOGICAL: -altered mental status or loss of consciousness, -headache, - neurologic symptoms PSYCHIATRIC: -anxiety, -depression. ALL OTHER SYSTEMS REVIEWED AND NEGATIVE. Physical Exam - Vital signs Vitals: Temp Pulse Resp BP Pulse Ox 97.8 F 91 16 163/106 H 97 10/30/17 17:05 10/30/17 17:05 10/30/17 17:05 10/30/17 17:05 10/30/17 17:05 - Notes Notes: PHYSICAL EXAMINATION: GENERAL: Well-appearing, well-nourished and in no acute distress. HEAD: Atraumatic, normocephalic. EYES: Pupils equal round and reactive to light, extraocular movements intact, sclera anicteric, conjunctiva are normal. ENT: nares patent, oropharynx clear without exudates. Moist mucous membranes. NECK: Normal range of motion, supple without lymphadenopathy LUNGS: Breath sounds clear to auscultation bilaterally and equal. No wheezes rales or rhonchi. HEART: Regular rate and rhythm without murmurs ABDOMEN: Soft, nontender, normoactive bowel sounds. No guarding, no rebound. No masses appreciated. EXTREMITIES: Normal range of motion, no pitting or edema. No cyanosis. NEUROLOGICAL: Cranial nerves grossly intact. Normal speech, normal gait. Normal sensory and motor exams. PSYCH: Normal mood, normal affect. SKIN: Warm, Dry, normal turgor, no rashes or lesions noted. Course - Re-evaluation Re-evalutation: Patient appears well and is in no acute distress. EKG does not show any ischemic changes and chest x-ray is normal. She is PERC negative and her HEART score is below 3. She has equal pulses and does not appear to have aortic dissection. Patient given strict return precautions and will follow with her primary care physician for further evaluation and treatment. - Vital Signs Vital signs: Temp Pulse Resp BP Pulse Ox 97.7 F 81 18 157/98 H 99 10/30/17 18:33 10/30/17 18:33 10/30/17 18:33 10/30/17 18:33 10/30/17 18:33 - Diagnostic Test Radiology reviewed: Image reviewed, Reports reviewed Radiology results interpreted by me: CXR: NAD - EKG Interpretation by Me EKG shows normal: Sinus rhythm, [place], Intervals, QRS Complexes, ST-T Waves Rate: Normal Discharge - Discharge Clinical Impression: Shortness of breath Chest pain Qualifiers: Chest pain type: unspecified Qualified Code(s): R07.9 - Chest pain, unspecified Condition: Stable Disposition: HOME, SELF-CARE Additional Instructions: CHEST PAIN OF UNCLEAR CAUSE: The exact cause of your chest pain isn't clear. Fortunately, there is no evidence of a dangerous medical condition. Further testing may be required to find the source of the pain. Most often, we find that this pain is coming from the chest wall -- the muscles or rib joints in the chest. But chest pain can come from the lung and lung lining, the esophagus, the heart valves or heart lining, and even the stomach or gallbladder. Rest. Eat lightly until the pain is gone. We may prescribe medicine for pain and inflammation. You should call the physician immediately if the pain radiates to the shoulder, jaw or arms; if you start to run a fever or develop a cough; or if you develop shortness of breath, or other new or alarming symptoms. NORMAL EXAM AND WORKUP: At this time, your examination and workup show no significant abnormality. No significant abnormal physical findings were noted. All laboratory, EKG, and imaging (x-ray, CT scans, ultrasound) studies that were ordered show no significant abnormality. Although your examination and all studies that were ordered showed no significant abnormal finding, there are no examinations and no studies that are 100% accurate. There is always the possibility that some abnormality could exist and not be detected with physical examination or within the limits and capabilities of laboratory and other studies. You should return or follow up as you were instructed on your visit today for further evaluation if your symptoms do not resolve. CHEST WALL PAIN: Your chest pain may be coming from the chest wall. This is often caused by straining the muscles or joints in the chest during physical activity, direct trauma, coughing, or vigorous vomiting. Persons with arthritis are especially prone to this type of pain, due to inflammation of the cartilage joints near the breast bone. Occasionally, no cause can be found. Rest from strenuous physical activity. This kind of chest pain is usually made worse by movement of the chest. Depending on the symptoms, we may prescribe medicine for pain, muscle relaxation, and antiinflammatory effects. If the pain is new, and seems to be due to muscle strain, cold packs can help. Otherwise, apply gentle warmth to the painful area for 15 minutes every hour or two. You should call contact the doctor immediately if things change. Further evaluation is needed if you develop a fever or cough, if the nature of the pain changes, or if you become short of breath. ANGINA EPISODE: Your physician has diagnosed the pain you experienced as an episode of angina. Angina occurs when a portion of the heart muscle temporarily lacks oxygen. It does not cause any permanent heart damage, but serves as a warning. Hospitalization is not necessary now. Evaluation of your cardiac condition , and medical therapy for angina will be necessary. It's important you be sure to keep all appointments and take medication exactly as prescribed. Angina is usually treated with a type of "nitrate" medication. This is available as ointment, pills, or sublingual (under the tongue) tablets. Depending on your clinical situation, other medications may be added to help control angina. These may include beta blockers or calcium blockers. If episodes of angina are occurring with increased frequency, or if chest pain lasts longer than 15 minutes or does not respond to nitroglycerin, you must seek emergency medical care immediately. FOLLOW-UP CARE: If you have been referred to a physician for follow-up care, call the physician s office for an appointment as you were instructed or within the next two days. If you experience worsening or a significant change in your symptoms, notify the physician immediately or return to the Emergency Department at any time for re-evaluation. Prescriptions: Ondansetron [Zofran Odt 4 mg Tablet] 1 - 2 tab PO Q4H PRN #15 tab.rapdis PRN Reason: For Nausea/Vomiting Forms: Elevated Blood Pressure, Smoking Cessation Education Referrals: MAGNO NICHOLE MD [ACTIVE STAFF] - Follow up tomorrow
--- NOTE | 2017-10-30 18:13 | RADIOLOGY REPORT (SQ) ---
EXAM DESCRIPTION: CHEST 2 VIEWS COMPLETED DATE/TIME: 10/30/2017 6:04 pm REASON FOR STUDY: chest pain COMPARISON: 05/26/2016. EXAM PARAMETERS: NUMBER OF VIEWS: two views TECHNIQUE: Digital Frontal and Lateral radiographic views of the chest acquired. RADIATION DOSE: NA LIMITATIONS: none FINDINGS: LUNGS AND PLEURA: No opacities, masses or pneumothorax. No pleural effusion. MEDIASTINUM AND HILAR STRUCTURES: No masses or contour abnormalities. HEART AND VASCULAR STRUCTURES: Heart upper limits of normal size. No evidence for failure. BONES: No acute findings. HARDWARE: Clips in the upper abdomen. OTHER: No other significant finding. IMPRESSION: NO ACUTE RADIOGRAPHIC FINDING IN THE CHEST. TECHNICAL DOCUMENTATION: JOB ID: [id number] [employer]- All Rights Reserved Reading location - IP/workstation name: [email or web address]
[2017-10-30 18:34] VITALS: BP 157/98
--- NOTE | 2017-10-30 21:36 | EKG REPORT ---
SEVERITY:- ABNORMAL ECG - SINUS RHYTHM PROBABLE LEFT VENTRICULAR HYPERTROPHY INFERIOR Q WAVES, PROBABLY NORMAL VARIATION : Confirmed by: Maira Zarate 30-Oct-2017 21:35:35
== END 2017-10-30 18:34 | disposition home or self-care (01) ==
LOC: ER 16:57
DX: R07.9 Chest pain, unspecified (principal); R06.02 Shortness of breath; G89.29 Other chronic pain; M54.9 Dorsalgia, unspecified; F17.200 Nicotine dependence, unspecified, uncomplicated; I10 Essential (primary) hypertension
CPT/HCPCS: 71046; 93005; 93010; 99285

== ENCOUNTER 2018-01-17 16:24 | Emergency (ER) | payer BC ==
[2018-01-17 16:38] VITALS: BP 145/95
--- NOTE | 2018-01-17 17:11 | RADIOLOGY REPORT (SQ) ---
EXAM DESCRIPTION: FOOT LEFT COMPLETE COMPLETED DATE/TIME: 01/17/2018 4:52 pm REASON FOR STUDY: foot pain COMPARISON: None. NUMBER OF VIEWS: Three views. TECHNIQUE: AP, lateral and oblique radiographic images acquired of the left foot. LIMITATIONS: None. FINDINGS: MINERALIZATION: Normal. BONES: There is an oblique fracture through the neck of the 5th proximal phalanx. JOINTS: No effusions. SOFT TISSUES: No soft tissue swelling. No foreign body. OTHER: No other significant finding. IMPRESSION: Fracture of the 5th proximal phalanx. TECHNICAL DOCUMENTATION: JOB ID: [id number] [employer]- All Rights Reserved Reading location - IP/workstation name: [email or web address]
--- NOTE | 2018-01-17 18:03 | ER Document Report ---
ED Extremity Problem, Lower - General Chief Complaint: Foot Injury Stated Complaint: FOOT PAIN Time Seen by Provider: 01/17/18 16:51 Mode of Arrival: Ambulatory Information source: Patient Notes: 87-year-old female presented ED for complaint of pain to the fifth toe on the left foot. She states she went to step over piece of driftwood and accidentally kicked the piece of [place] causing severe pain in her fifth toe. Patient is alert and oriented respirations regular and unlabored speaking in full sentences and can walk with a limp. TRAVEL OUTSIDE OF THE [place] IN LAST 30 DAYS: No - HPI Patient complains to provider of: Injury, Pain, Swelling Location: 5th Toe Occurred: This morning Where: Outdoors Onset/Duration: Sudden Quality of pain: Sharp, Throbbing Severity: Moderate Pain Level: 4 Context: Other - Kicked a piece of [place] Recent injury: Yes Associated symptoms: Painful ambulation Exacerbated by: Hanging down, Movement, Walking Relieved by: Elevation, Ice, Rest - Related Data Allergies/Adverse Reactions: doxycycline Allergy (Verified 01/17/18 16:25) naproxen [From Naprosyn] Allergy (Verified 01/17/18 16:25) Past Medical History - General Information source: Patient - Social History Smoking Status: Unknown if Ever Smoked Frequency of alcohol use: None Drug Abuse: None Lives with: Family Family History: CAD, CVA, DM, Hyperlipidemia, Hypertension, Malignancy, Other - GB disease Patient has suicidal ideation: No Patient has homicidal ideation: No - Past Medical History Cardiac Medical History: Reports: Hx Hypertension Pulmonary Medical History: Reports: Hx Bronchitis, Hx Pneumonia EENT Medical History: Reports: None Neurological Medical History: Reports: None Endocrine Medical History: Reports: None Renal/ Medical History: Reports: Hx Kidney Stones Malignancy Medical History: Reports: None GI Medical History: Reports: Hx Gastroesophageal Reflux Disease Musculoskeltal Medical History: Reports Hx Arthritis - chronic back pain, Reports Hx Musculoskeletal Trauma - fr arm Skin Medical History: Reports None Psychiatric Medical History: Reports: Hx Anxiety, Hx Bipolar Disorder Traumatic Medical History: Reports: Hx Fractures - right arm left fifth toe Infectious Medical History: Reports: None Past Surgical History: Reports: Hx Section - x3, Hx Cholecystectomy, Hx Herniorrhaphy, Hx Hysterectomy, Hx Inguinal Hernia, Hx Oral Surgery - teeth taken out - Immunizations Immunizations up to date: Yes Hx Diphtheria, Pertussis, Tetanus Vaccination: Yes Review of Systems - Review of Systems Constitutional: No symptoms reported EENT: No symptoms reported Cardiovascular: No symptoms reported Respiratory: No symptoms reported Gastrointestinal: No symptoms reported Genitourinary: No symptoms reported Female Genitourinary: No symptoms reported Musculoskeletal: Other - Pain swelling bruising to the left fifth toe Skin: No symptoms reported Hematologic/Lymphatic: No symptoms reported Neurological/Psychological: No symptoms reported -: Yes All other systems reviewed and negative Physical Exam - Vital signs Vitals: Temp Pulse Resp BP Pulse Ox 97.5 F 96 16 145/95 H 100 01/17/18 16:36 01/17/18 16:36 01/17/18 16:36 01/17/18 16:36 01/17/18 16:36 Interpretation: Normal - General General appearance: Appears well, Alert - HEENT Head: Normocephalic, Atraumatic Eyes: Normal Pupils: PERRL - Respiratory Respiratory status: No respiratory distress Chest status: Nontender Breath sounds: Normal Chest palpation: Normal - Cardiovascular Rhythm: Regular Heart sounds: Normal auscultation Murmur: No - Abdominal Inspection: Normal Distension: No distension Bowel sounds: Normal Tenderness: Nontender Organomegaly: No organomegaly - Back Back: Normal, Nontender - Extremities General upper extremity: Normal inspection, Nontender, Normal color, Normal ROM , Normal temperature General lower extremity: Normal ROM, Normal temperature. No: Adair's sign Foot: Tender, Ecchymosis, Edema, Metatarsal compress. pain, No evidence of FB, Other - Swelling bruising and tenderness to the left fifth toe - Neurological Neuro grossly intact: Yes Cognition: Normal Orientation: AAOx4 Riva Coma Scale Eye Opening: Spontaneous Riva Coma Scale Verbal: Oriented [place] Coma Scale Motor: Obeys Commands Riva Coma Scale Total: 15 Speech: Normal Motor strength normal: LUE, RUE, LLE, RLE Sensory: Normal - Psychological Associated symptoms: Normal affect, Normal mood - Skin Skin Temperature: Warm Skin Moisture: Dry Skin Color: Normal Course - Re-evaluation Re-evalutation: 01/17/18 23:28 X-rays discussed with patient and written report of x-ray given the patient. The fifth toe was taped to the fourth toe on the left foot. Patient was encouraged to elevate ice the foot and follow-up with podiatry. Patient was given a small prescription of narcotics for this pain. Patient was instructed to stay off the foot for the next couple days as much as possible. - Vital Signs Vital signs: Temp Pulse Resp BP Pulse Ox 97.5 F 96 16 145/95 H 100 01/17/18 16:36 01/17/18 16:36 01/17/18 16:36 01/17/18 16:36 01/17/18 16:36 - Diagnostic Test Radiology reviewed: Image reviewed, Reports reviewed Discharge - Discharge Clinical Impression: Fracture of fifth toe, left, closed Qualifiers: Encounter type: initial encounter Qualified Code(s): S92.502A - Displaced unspecified fracture of left lesser toe(s), initial encounter for closed fracture Condition: Stable Disposition: HOME, SELF-CARE Additional Instructions: Fractured Toe You have fractured your toe. Although this fracture doesn't need a cast or splint, emergency evaluation was needed to assess the straightness of the bones and joints. Reduction ("setting") is necessary for toe fractures which are crooked or twisted. A toe fracture will heal in about three weeks. Usually, the fractured toe is taped to the next toe. The second toe acts as a moving splint to protect the broken one. Ice and elevation help during the first 48 hours. You may need crutches at first if walking is painful. When you begin walking, be careful NOT to do things that hurt. If weight bearing is not comfortable within a few days, you may require a special shoe, walking boot, or cast. Call the doctor or return at once if severe swelling, severe pain, or numbness develop in the toe, or if you suspect you may have re-injured it. ICE & ELEVATION: Apply ice packs frequently against the painful area. Many different schedules are recommended, such as "20 minutes on, 20 minutes off" or "one hour ice, two hours rest." If you need to work, you may need to go longer between ice treatments. You should plan to have the area ice packed AT LEAST one- fourth of the time. The ice should be applied over the wrap, tape, or splint, or over a layer of cloth -- not directly against the skin. Some ice bags have a built-in cloth and can be put directly on the skin. Your injured part should be elevated as much as possible over the next 48 hours. Try to keep the injury above the level of the heart. Avoid use of the injured area. Elevation and rest will decrease the swelling. USE OF HOOE-CFY-KQIDAZZ IBUPROFEN: Ibuprofen (Advil, Nuprin, Medipren, Motrin IB) is a medication for fever and pain control. In addition, it has anti- inflammatory effects which may be beneficial, especially in the treatment of injuries. It's best to take ibuprofen with food. Persons with ulcer disease or allergy to aspirin should notify their physician of this before taking ibuprofen. Ibuprofen can be given every four to six hours, for a total of four doses daily. Age Pain or fever dose Antiinflammatory dose 6-8 yr 200 mg (1 tab) 200 mg (1 tab) 9-11 yr 200 mg (1 tab) 200-400 mg (1-2 tab) 11-14 yr 200-400 mg (1-2 tab) 400 mg (2 tab) 15-adult 400 mg (2 tab) 600 mg (3 tab) FOLLOW-UP CARE: If you have been referred to a physician for follow-up care, call the physician s office for an appointment as you were instructed or within the next two days. If you experience worsening or a significant change in your symptoms, notify the physician immediately or return to the Emergency Department at any time for re-evaluation. Prescriptions: Hydrocodone/Acetaminophen [[place] 5-325 mg Tablet] 1 tab PO Q6HP PRN #5 tablet PRN Reason: Forms: Elevated Blood Pressure, Return to Work Referrals: JAMEE MANNING DPM [ACTIVE STAFF] - Follow up as needed
== END 2018-01-17 18:25 | disposition home or self-care (01) ==
LOC: ER 16:24
DX: S92.502A Displaced unspecified fracture of left lesser toe(s), initial encounter for closed fracture (principal); M79.672 Pain in left foot; W22.8XXA Striking against or struck by other objects, initial encounter; I10 Essential (primary) hypertension
CPT/HCPCS: 99283

== ENCOUNTER 2018-10-25 05:14 | Day surgery (SDC) | payer BC ==
[2018-10-18 10:10] LABS: BLOOD UREA NITROGEN 11 mg/dL (7-20); CALCIUM 9.4 mg/dL (8.4-10.2); GLUCOSE 92 mg/dL (75-110); POTASSIUM 3.9 mmol/L (3.6-5.0)
[2018-10-18 10:16] LABS: ANION GAP 5 (5-19); CARBON DIOXIDE 29 mmol/L (22-30); CHLORIDE 108 mmol/L (98-107); SODIUM 141.5 mmol/L (137-145)
--- NOTE | 2018-10-18 10:41 | RADIOLOGY REPORT (SQ) ---
EXAM DESCRIPTION: CHEST PA/LATERAL COMPLETED DATE/TIME: 10/18/2018 9:28 am REASON FOR STUDY: PRE-OP COMPARISON: 10/30/2017 EXAM PARAMETERS: NUMBER OF VIEWS: two views TECHNIQUE: Digital Frontal and Lateral radiographic views of the chest acquired. RADIATION DOSE: NA LIMITATIONS: none FINDINGS: LUNGS AND PLEURA: No opacities, masses or pneumothorax. No pleural effusion. MEDIASTINUM AND HILAR STRUCTURES: No masses or contour abnormalities. HEART AND VASCULAR STRUCTURES: Heart normal size. No evidence for failure. BONES: No acute findings. HARDWARE: None in the chest. OTHER: No other significant finding. IMPRESSION: NO SIGNIFICANT RADIOGRAPHIC FINDING IN THE CHEST. TECHNICAL DOCUMENTATION: JOB ID: [id number] [employer]- All Rights Reserved Reading location - IP/workstation name: [email or web address]
--- NOTE | 2018-10-18 13:23 | EKG REPORT ---
SEVERITY:- BORDERLINE ECG - SINUS RHYTHM NONSPECIFIC ST-T CHANGES- INFERIOR LEADS BORDERLINE LEFT AXIS DEVIATION : Confirmed by: Fernandez Ocampo MD 18-Oct-2018 13:22:54
[~2018-10-25 05:14] MED LIST: CEFAZOLIN 2 GM/D5W RTU 2 GM/50 ML RTUPB IV PRN; IBUPROFEN 800 MG in NORMAL SALINE 250 ML IV PRN; LACTATED RINGERS 1000 ML IV PRN; LIDOCAINE 0.5% INJ-PF (5 MG/ML) 50 ML SDV SUBCUT PRN
[2018-10-25] MEDS ORDERED: CEFAZOLIN 2 GM/D5W RTU 2 GM/50 ML RTUPB IV ONE (05:16)
[2018-10-25 05:51] VITALS: BP 131/78
[2018-10-25] MEDS ORDERED: MORPHINE SULFATE 10 MG/ML INJ ONE (06:14)
[2018-10-25] MEDS ORDERED: DEXAMETHASONE SOD PHOSPHATE INJ 4 MG/1 ML VIAL ONE (06:22)
[2018-10-25] MEDS ORDERED: ONDANSETRON HCL INJ/PF 4 MG/2 ML SDV ONE (06:22)
[2018-10-25] MEDS ORDERED: FENTANYL CITRATE INJ/PF 100 MCG/2 ML AMPUL ONE (06:22)
[2018-10-25] MEDS ORDERED: MIDAZOLAM 2 MG/2 ML INJ ONE (06:22)
[2018-10-25] MEDS ORDERED: SUGAMMADEX SODIUM 200 MG/2 ML SDV IV ONE (06:22)
[2018-10-25] MEDS ORDERED: PROPOFOL INJ 200 MG/20 ML VIAL IV ONE (06:23)
[2018-10-25] MEDS ORDERED: ACETAMINOPHEN 0 MG/0 ML RTUPB IV ONE (06:23)
[2018-10-25] MEDS ORDERED: ASPIRIN 325 MG TABLET PO ONE (06:30)
[2018-10-25] MEDS ORDERED: MORPHINE SULFATE 10 MG/ML INJ IV ONE (07:00)
[2018-10-25 09:09] LABS: BLOOD UREA NITROGEN 15 mg/dL (7-20); CALCIUM 9.3 mg/dL (8.4-10.2); GLUCOSE 120 mg/dL (75-110); POTASSIUM 3.7 mmol/L (3.6-5.0)
[2018-10-25 09:14] LABS: ANION GAP 5 (5-19); CARBON DIOXIDE 28 mmol/L (22-30); CHLORIDE 109 mmol/L (98-107)
--- NOTE | 2018-10-25 09:47 | EKG REPORT ---
SEVERITY:- ABNORMAL ECG - SINUS RHYTHM PROBABLE LEFT VENTRICULAR HYPERTROPHY : Confirmed by: Maira Zarate 25-Oct-2018 09:47:15
== END 2018-10-25 07:35 | disposition home or self-care (01) ==
LOC: OROUT 05:14
PROVIDERS: ATTEND Surgery
DX: Z01.818 Encounter for other preprocedural examination (principal); K42.9 Umbilical hernia without obstruction or gangrene; M62.08 Separation of muscle (nontraumatic), other site; I10 Essential (primary) hypertension; F17.200 Nicotine dependence, unspecified, uncomplicated; E66.9 Obesity, unspecified; I51.7 Cardiomegaly
CPT/HCPCS: 93005 ×2; 36415 ×2; 84132; 80048 ×2; 84484; 71046; 93010 ×2; J2270; J0690; J0131; J1100; J2250; J2405; J2704; J3010; J3490

== ENCOUNTER 2019-01-03 05:21 | Day surgery (SDC) | payer BC ==
[2018-12-27 09:22] LABS: HEMATOCRIT 36.2 % (36.0-47.0); HEMOGLOBIN 12.4 g/dL (12.0-15.5); MEAN CORPUSCULAR HEMOGLOBIN 29.1 pg (27.0-33.4); MEAN CORPUSCULAR HGB CONC 34.1 g/dL (32.0-36.0); MEAN CORPUSCULAR VOLUME 85 fl (80-97); PLATELET COUNT 270 10^3/uL (150-450); RED BLOOD COUNT 4.26 10^6/uL (3.72-5.28); RED CELL DISTRIBUTION WIDTH 14.5 % (11.5-14.0); WHITE BLOOD COUNT 9.7 10^3/uL (4.0-10.5)
[2018-12-27 09:45] LABS: ANION GAP 9 (5-19); BLOOD UREA NITROGEN 17 mg/dL (7-20); CALCIUM 9.8 mg/dL (8.4-10.2); CARBON DIOXIDE 30 mmol/L (22-30); CHLORIDE 101 mmol/L (98-107); GLUCOSE 122 mg/dL (75-110); POTASSIUM 3.5 mmol/L (3.6-5.0); SODIUM 139.8 mmol/L (137-145)
--- NOTE | 2018-12-27 18:34 | EKG REPORT ---
SEVERITY:- ABNORMAL ECG - SINUS RHYTHM PROBABLE LEFT VENTRICULAR HYPERTROPHY CONSIDER OLD INFERIOR WI : Confirmed by: Fernandez Ocampo MD 27-Dec-2018 18:34:13
[~2019-01-03 05:21] MED LIST changes: +ACETAMINOPHEN 325 MG TABLET ONE; +ACETAMINOPHEN 325 MG TABLET PO PRN; +CEFAZOLIN 2 GM/D5W RTU 2 GM/50 ML RTUPB IV ONE; -IBUPROFEN 800 MG in NORMAL SALINE 250 ML IV PRN; +PREGABALIN 50 MG CAPSULE ONE; +PREGABALIN 50 MG CAPSULE PO PRN
[2019-01-03] MEDS ORDERED: SUGAMMADEX SODIUM 200 MG/2 ML SDV IV ONE (06:42)
[2019-01-03] MEDS ORDERED: MIDAZOLAM 2 MG/2 ML INJ ONE (06:42)
[2019-01-03] MEDS ORDERED: FENTANYL CITRATE INJ/PF 250 MCG/5 ML AMPULE ONE (06:42)
[2019-01-03] MEDS ORDERED: PROPOFOL INJ 200 MG/20 ML VIAL IV ONE (06:43)
[2019-01-03] MEDS ORDERED: ALBUTEROL SULFATE 0.083% NEB 2.5 MG/3 ML AMPUL NEB ONE (06:47)
[2019-01-03] MEDS ORDERED: BUPIVACAINE HCL 0.25 % INJ/PF (2.5 MG/1 ML) 30 ML VIAL ONE (07:20)
[2019-01-03] MEDS ORDERED: MEPERIDINE HCL/PF INJ 25 MG/1 ML DISP.SYRIN IV PRN (08:20)
[2019-01-03] MEDS ORDERED: OXYCODONE-ACETAMINOPHEN 5-325 MG TABLET PO PRN ×2 (08:20)
[2019-01-03] MEDS ORDERED: PROMETHAZINE HCL INJ 25 MG/1 ML VIAL IV PRN ×2 (08:20)
[2019-01-03] MEDS ORDERED: FENTANYL CITRATE INJ/PF 100 MCG/2 ML AMPUL IV PRN ×3 (08:20)
[2019-01-03] MEDS ORDERED: DIPHENHYDRAMINE HCL 50 MG/ML VIAL IV PRN (08:20)
[2019-01-03] MEDS ORDERED: MORPHINE SULFATE 10 MG/ML INJ IV PRN (08:20)
[2019-01-03] MEDS ORDERED: HYDROMORPHONE HCL INJ/PF 2 MG/ML AMPULE ONE (09:15)
[2019-01-03] MEDS ORDERED: ROCURONIUM BROMIDE INJ 50 MG/5 ML VIAL IV ONE (10:34)
[2019-01-03] MEDS ORDERED: ONDANSETRON HCL INJ/PF 4 MG/2 ML SDV ONE (10:34)
[2019-01-03] MEDS ORDERED: LIDOCAINE 2% INJ-PF (20 MG/ML) 2 ML AMPUL ONE (10:34)
[2019-01-03] MEDS ORDERED: NEOSTIGMINE METHYLSULFATE 10 MG/10 ML VIAL ONE (10:34)
[2019-01-03] MEDS ORDERED: GLYCOPYRROLATE 1 MG/5 ML VIAL ONE (10:34)
[2019-01-03] MEDS ORDERED: DEXAMETHASONE SOD PHOSPHATE INJ 4 MG/1 ML VIAL ONE (10:34)
[2019-01-03] MEDS ORDERED: FENTANYL CITRATE INJ/PF 100 MCG/2 ML AMPUL ONE (10:52)
[2019-01-03] MEDS ORDERED: EPHEDRINE SULFATE INJ 50 MG/1 ML AMPULE ONE (11:00)
[2019-01-03] MEDS ORDERED: KETOROLAC TROMETHAMINE INJ/PF 30 MG/1 ML SDV ONE (11:11)
[2019-01-03] MEDS: HYDROMORPHONE HCL INJ/PF 2 MG/ML AMPULE ONE ×4 (11:13→11:43)
[2019-01-03] MEDS ORDERED: METOCLOPRAMIDE HCL INJ/PF 10 MG/2 ML SDV ONE (12:02)
[2019-01-03] MEDS ORDERED: SCOPOLAMINE HYDROBROMIDE 1.5 MG PATCH.TD72 ONE (12:02)
[2019-01-03] MEDS ORDERED: DIPHENHYDRAMINE HCL 50 MG/ML VIAL ONE (12:02)
[2019-01-03] MEDS ORDERED: HYDROCODONE/ACETAMINOPHEN 10-325 MG TABLET ONE (12:30)
[2019-01-03] MEDS ORDERED: DIPHENHYDRAMINE HCL 50 MG/ML VIAL IV ONE (12:45)
[2019-01-03] MEDS ORDERED: METOCLOPRAMIDE HCL INJ/PF 10 MG/2 ML SDV IV ONE (12:45)
[2019-01-03] MEDS ORDERED: SCOPOLAMINE HYDROBROMIDE 1.5 MG PATCH.TD72 TD ONE (12:45)
[2019-01-03 13:58] VITALS: BP 122/77
--- NOTE | 2019-01-08 08:52 | Operative Report ---
Nonrecallable Operative Report DATE OF SURGERY: 01/03/19 PREOPERATIVE DIAGNOSIS: Midline ventral hernia POSTOPERATIVE DIAGNOSIS: Midline ventral hernia with multiple, small [place] cheese defects. OPERATION: 1. Robot-assisted laparoscopic [place] cheese ventral hernia repair with mesh. 2. Reapproximation of diastases recti, robotically SURGEON: MAE SAHU ANESTHESIA: GA TISSUE REMOVED OR ALTERED: None COMPLICATIONS: None apparent ESTIMATED BLOOD LOSS: Minimal PROCEDURE: Drains/implants: Ventralight ST hernia mesh 25 cm length (originally 20 cm width, cut to 16 cm width) Procedure in detail: After informed consent was obtained, the patient was brought to the operating room and laid in the supine position. The area of the abdomen was prepped and draped in a normal sterile fashion. An incision was created in the left upper quadrant with a 15 blade scalpel. The abdomen was then accessed using the Optiview technique, a 5 mm trocar, and a 5 mm camera. Once the trocar was inserted into the abdominal cavity, gas insufflation was attached and pneumoperitoneum was achieved. Next, a 12 mm left lateral trocar was placed under direct laparoscopic visualization. An 8 mm left lower quadrant trocar was placed under direct laparoscopic visualization. The 5 mm left upper quadrant trocar was removed and replaced with an 8 mm robotic trocar. The robot was then brought over the patient and docked appropriately. I then assumed my position at the surgeon's consult. Attention was turned to reduction of the fat from the hernia defect. The main portion of the hernia was in the immediate supraumbilical position. As fat was being cleared away from the anterior abdominal wall, several more [place] cheese defects were found in the infraumbilical position. There is also a large amount of diastases recti present in the supraumbilical position. After all the fat was cleaned away from the anterior abdominal wall and all the hernia defects were identified, attention was turned to closure of the diastases recti and hernia defects. Using #1 V Lock Suture in simple running fashion the midline abdominal wall was closed. 3 separate overlapping number 1V lock sutures were used. Once the abdominal wall was approximated, it was felt that a 25 cm craniocaudal mesh would be required. The mesh originally measured 25 x 20 cm. The mesh was cut to 16 cm width in order to adequately fit into the abdominal cavity. The mesh was inserted. It was apposed to the anterior abdominal wall using the EPS device. The mesh was then sutured to the anterior abdominal wall using circumferential 2-0 V lock sutures. A final V lock suture was used to secure the middle of the mesh to the anterior abdominal wall. Once this was completed, the repair appeared in good order. The robot was undocked. I scrubbed back into the case. The 8 mm trocar sites were closed using 0 Vicryl suture in simple interrupted fa shion with the aid of the Carlitos-Fidel device. The 12 mm trocar site was closed using 0 Vicryl suture in [id number] fashion with the aid of the Carlitos-Fidel device. The overlying skin was closed using 4-0 Vicryl Rapide suture in subcuticular fashion. Dressings were placed, and the procedure was concluded. All sponge, instrument, and needle counts were correct x2. Condition: Stable.
--- NOTE | 2019-01-08 08:53 | Discharge Summary ---
Discharge Summary (SDC) - Discharge Final Diagnosis: [place] cheese ventral hernia Date of Surgery: 01/03/19 Discharge Date: 01/03/19 Condition: Stable Forms: ASU Anesthesia D/C Instruction, Discharge POC-Surgical Service Treatment or Instructions: Discharge home. Diet as tolerated. Activity: No lifting or than 10 pounds x 6 weeks. Follow-up with me in 7 to 10 days. Okay to shower in 48 hours. No tub baths or swimming pools x2 weeks. Referrals: MAE SAHU MD [ACTIVE STAFF] - 01/13/19 8:15 am () Discharge Diet: As Tolerated Respiratory Treatments at Home: Deep Breathing/Coughing, Incentive Spirometer Discharge Activity: No Lifting Over 10 Pounds, No Lifting/Push/Pulling Home Care Assistance: None Needed Report the Following to Your Physician Immediately: Shortness of Breath, Nausea, Vomiting, Increase in Pain, Fever over 101 Degrees, Unusual Bleeding
== END 2019-01-03 13:25 | disposition home or self-care (01) ==
LOC: OROUT 05:21
PROVIDERS: ATTEND Surgery
DX: K43.9 Ventral hernia without obstruction or gangrene (principal); I10 Essential (primary) hypertension; E78.00 Pure hypercholesterolemia, unspecified; E66.9 Obesity, unspecified; F17.210 Nicotine dependence, cigarettes, uncomplicated; Z79.899 Other long term (current) drug therapy; Z68.34 Body mass index [BMI] 34.0-34.9, adult
CPT/HCPCS: 49652; S2900; 36415; 752; 80048; 84132; 85027; 86850; 86900; 86901; 93005; 93010; C1781; J0690; J1100; J1170; J1200; J1885; J2250; J2405; J2704; J2710; J2765; J3010; J3490